=== PATIENT | male | born 1965 | race Caucasian/White ===

== ENCOUNTER 2017-09-29 07:00 | Emergency (ER) | payer SELFPAY ==
[~2017-09-29] VITALS: Ht 182.9 cm; Wt 75.9 kg
--- NOTE | 2017-09-29 07:05 | EMERGENCY ROOM VISIT NOTE ---
History Report prepared by Scribe: Glenys Tena Under the Supervision of: Dr. Kt Rudd D.O. First contact with patient: 06:59 Stated Complaint: HYPOTENSION/LETHARGIC History of Present Illness The patient is a 52 year old male who presents to the Emergency Room with complaints of an episode of lethargy and weakness that began earlier this morning. 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 EMS states the patient began to feel diaphoretic and dizzy while he was at work, so he called EMS. He was bradycardic, hypoxic at 86% and hypotensive in the 60's on EMS arrival. The patient notes he feels much better here in the ED. He denies any headache. He is a non-smoker. He reports he experienced similar symptoms "a few months ago", but no clear etiology was ever found. He denies any chest pain or abdominal pain. He denies any recent drug or alcohol use. He admits he did not sleep well last night. He states he takes no daily medications. Source of History: patient, EMS Onset: BOOK [employer] Position: other (global) Timing: resolved Associated Symptoms: + diaphoresis, No chest pain, No abdominal pain Review of Systems See HPI for pertinent positives & negatives. A total of 10 systems reviewed and were otherwise negative. Past Medical & Surgical Medical Problems: (1) No significant past medical history Social History Alcohol Use: occasionally Drug Use: none Marital Status: in relationship Housing Status: lives with significant other Occupation Status: employed Current/Historical Medications Miscellaneous Medications None (Patient States No Home Meds) Allergies Coded Allergies: No Known Allergies (Unverified , 09/29/17) Physical Exam Vital Signs Date Time Temp Pulse Resp B/P (MAP) Pulse Ox O2 Delivery O2 Flow Rate FiO2 09/29/17 10:22 87 17 116/76 98 09/29/17 10:16 116/76 09/29/17 10:11 87 13 98 09/29/17 10:01 115/76 09/29/17 09:56 88 18 96 09/29/17 09:46 125/77 09/29/17 09:41 83 19 97 09/29/17 09:31 114/73 09/29/17 09:26 84 20 98 09/29/17 09:16 132/80 09/29/17 09:11 92 21 100 09/29/17 09:01 123/74 09/29/17 08:56 82 17 98 09/29/17 08:51 36.5 82 14 99 Room Air 09/29/17 08:46 119/77 09/29/17 08:36 75 14 98 Room Air 09/29/17 08:31 118/75 Room Air 09/29/17 08:21 73 17 97 Room Air 09/29/17 08:16 120/76 Room Air 09/29/17 08:15 91 10 100 Room Air 09/29/17 08:01 118/70 Room Air 09/29/17 08:00 77 14 98 Room Air 09/29/17 07:46 115/73 09/29/17 07:45 83 16 99 09/29/17 07:31 114/73 09/29/17 07:30 72 12 119/71 99 09/29/17 07:20 100 Room Air 09/29/17 07:15 72 16 99 09/29/17 07:10 34.6 60 21 106/64 99 Room Air 09/29/17 07:09 57 09/29/17 07:04 106/64 Physical Exam GENERAL: Patient is awake, alert, answers questions slowly and follows commands. EYES: The conjunctivae are clear. The pupils are round and reactive. EARS, NOSE, MOUTH AND THROAT: The nose is without any evidence of any deformity. Mucous membranes are moist tongue is midline NECK: The neck is nontender and supple. RESPIRATORY: Lung sounds were diminished throughout, no rales, rhonchi or wheezing noted CARDIOVASCULAR: Heart sounds were bradycardic and muffled. Regular rhythm noted , there are no definite murmurs, rubs or gallops normal S1 normal S2 GASTROINTESTINAL: The abdomen is soft. Bowel sounds are present in all quadrants. Abdomen is nontender MUSCULOSKELETAL/EXTREMITIES: There is no evidence of gross deformity full range of motion is noted in the hips and shoulders SKIN: Skin is warm and diaphoretic, no pedal edema noted. There is no obvious evidence of any rash. There are no petechiae, pallor or cyanosis noted. NEUROLOGIC: Patient is awake, oriented to person, place and time, seems to take longer than expected to answer questions, strength was symmetric Medical Decision & Procedures ER Provider Diagnostic Interpretation: Radiology results as stated below per my review and radiologist interpretation: CHEST ONE VIEW PORTABLE HISTORY: 52 years-old Male Sepsis acute sepsis with hypotension and lethargy COMPARISON: Chest radiograph 03/09/2006 TECHNIQUE: Portable AP view of the chest FINDINGS: Cardiomediastinal and hilar silhouettes are within normal limits. There is no pneumothorax, pleural effusion, focal airspace consolidation or overt pulmonary edema. Degenerative changes are seen within the shoulders and spine. IMPRESSION: No acute process. The above report was generated using voice recognition software. It may contain grammatical, syntax or spelling errors. Electronically signed by: Ra Long M.D. 09/29/2017 7:28 AM Laboratory Results 09/29/17 06:45 Red Blood Count 4.42, Mean Corpuscular Volume 87.1, Mean Corpuscular Hemoglobin 31.2, Mean Corpuscular Hemoglobin Concent 35.8, Mean Platelet Volume 11.7, Neutrophils (%) (Auto) 40.6, Lymphocytes (%) (Auto) 52.3, Monocytes (%) (Auto) 5.9, Eosinophils (%) (Auto) 0.8, Basophils (%) (Auto) 0.2, Neutrophils # (Auto) 4.25, Lymphocytes # (Auto) 5.47, Monocytes # (Auto) 0.62, Eosinophils # (Auto) 0.08, Basophils # (Auto) 0.02 09/29/17 06:45 Test 09/29/17 06:45 09/29/17 07:08 09/29/17 07:25 09/29/17 07:34 White Blood Count 10.46 K/uL (4.8-10.8) Red Blood Count 4.42 M/uL (4.7-6.1) Hemoglobin 13.8 g/dL (14.0-18.0) Hematocrit 38.5 % (42-52) Mean Corpuscular Volume 87.1 fL (80-100) Mean Corpuscular Hemoglobin 31.2 pg (25-34) Mean Corpuscular Hemoglobin Concent 35.8 g/dl (32-36) Platelet Count 267 K/uL (130-400) Mean Platelet Volume 11.7 fL (7.4-10.4) Neutrophils (%) (Auto) 40.6 % Lymphocytes (%) (Auto) 52.3 % Monocytes (%) (Auto) 5.9 % Eosinophils (%) (Auto) 0.8 % Basophils (%) (Auto) 0.2 % Neutrophils # (Auto) 4.25 K/uL (1.4-6.5) Lymphocytes # (Auto) 5.47 K/uL (1.2-3.4) Monocytes # (Auto) 0.62 K/uL (0.11-0.59) Eosinophils # (Auto) 0.08 K/uL (0-0.5) Basophils # (Auto) 0.02 K/uL (0-0.2) RDW Standard Deviation 39.8 fL (36.4-46.3) RDW Coefficient of Variation 12.4 % (11.5-14.5) Immature Granulocyte % (Auto) 0.2 % Immature Granulocyte # (Auto) 0.02 K/uL (0.00-0.02) Large Platelets 1+ Echinocytes 2+ Erythrocyte Sedimentation Rate 2 mm/hr (0-14) Prothrombin Time 11.4 SECONDS (9.0-12.0) Prothromb Time International Ratio 1.1 (0.9-1.1) Activated Partial Thromboplast Time 21.6 SECONDS (21.0-31.0) Partial Thromboplastin Ratio 0.8 Est Creatinine Clear Calc Drug Dose 85.7 ml/min Estimated GFR () 91.4 Estimated GFR (Non- 78.8 BUN/Creatinine Ratio 12.5 (10-20) Calcium Level 8.8 mg/dl (8.5-10.1) Phosphorus Level 2.9 mg/dl (2.5-4.9) Magnesium Level 1.9 mg/dl (1.8-2.4) Total Bilirubin 0.7 mg/dl (0.2-1) Aspartate Amino Transf (AST/SGOT) 12 U/L (15-37) Alanine Aminotransferase (ALT/SGPT) 18 U/L (12-78) Alkaline Phosphatase 66 U/L (45-117) Total Creatine Kinase 70 U/L (39-308) Creatine Kinase MB 1.9 ng/ml (0.5-3.6) Creatine Kinase MB Ratio 2.7 (0-3.0) Troponin I < 0.015 ng/ml (0-0.045) C-Reactive Protein < 0.29 mg/dl (0-0.29) Total Protein 7.4 gm/dl (6.4-8.2) Albumin 4.1 gm/dl (3.4-5.0) Globulin 3.3 gm/dl (2.5-4.0) Albumin/Globulin Ratio 1.3 (0.9-2) Lipase 171 U/L (73-393) Thyroid Stimulating Hormone (TSH) 7.790 uIu/ml (0.300-4.500) Free Thyroxine 1.35 ng/dl (0.80-1.60) Random Cortisol 19.05 mcg/dl Lyme Disease IgG Antibody NEG (NEG) Lyme Disease IgM Antibody NEG (NEG) Bedside D-Dimer 203 ng/mlFEU (0-450) Bedside Lactic Acid Venous 2.50 mmol/L (0.90-1.70) Bedside Hemoglobin 11.9 g/dl (14.0-18.0) Bedside Hematocrit 35 % (42-52) Bedside Sodium 141 mEq/L (135-144) Bedside Potassium 2.8 mEq/L (3.3-5.0) Bedside Chloride 105 mEq/L (101-112) Bedside Total CO2 21 mEq/l (24-31) Anion Gap 18.0 mmol/L (16-25) Bedside Blood Urea Nitrogen 13 mg/dl (7-18) Bedside Creatinine 0.9 mg/dl (0.6-1.3) Bedside Glucose (other) 188 mg/dl (70-99) Bedside Ionized Calcium (Raul) 1.05 mmol/l (1.12-1.32) Test 09/29/17 07:46 09/29/17 09:05 Venous Blood pH 7.37 (7.36-7.41) Venous Blood Partial Pressure CO2 41 mmHg (38.0-50.0) Venous Blood Partial Pressure O2 45 mmHg Venous Blood HCO3 24 mmol/L Venous Blood Oxygen Saturation 78.0 % Venous Blood Base Excess -1.5 mEq/L Carboxyhemoglobin 0.0 % THgb Ethyl Alcohol mg/dL < 3.0 mg/dl (0-3) Urine Color YELLOW Urine Appearance CLEAR (CLEAR) Urine pH 7.5 (4.5-7.5) Urine Specific [place] 1.010 (1.000-1.030) Urine Protein NEG (NEG) Urine Glucose (UA) NEG (NEG) Urine Ketones NEG (NEG) Urine Occult Blood NEG (NEG) Urine Nitrite NEG (NEG) Urine Bilirubin NEG (NEG) Urine Urobilinogen NEG (NEG) Urine Leukocyte Esterase NEG (NEG) Urine WBC (Auto) 0 /hpf (0-5) Urine RBC (Auto) 0-4 /hpf (0-4) Urine Hyaline Casts (Auto) 1-5 /lpf (0-5) Urine Epithelial Cells (Auto) 0-5 /lpf (0-5) Urine Bacteria (Auto) NEG (NEG) Urine Opiates Screen NEG (NEG) Urine Methadone, Qualitative NEG (NEG) Urine Barbiturates NEG (NEG) Urine Phencyclidine (PCP) Level NEG (NEG) Ur Amphetamine/Methamphetamine NEG (NEG) MDMA (Ecstasy) Screen NEG (NEG) Urine Benzodiazepines Screen NEG (NEG) Urine Cocaine Metabolite NEG (NEG) Urine Marijuana (THC) NEG (NEG) Laboratory results per my review. Medications Administered Medications (Trade) Dose Ordered Sig/Albert Route Start Time Stop Time Status Last Admin Dose Admin Sodium Chloride 1,000 ml @ 999 mls/hr Q1H1M ONCE IV 09/29/17 07:07 09/29/17 08:07 DC 09/29/17 07:34 999 MLS/HR Potassium Chloride 100 ml @ 100 mls/hr NOW STAT IV 09/29/17 07:44 09/29/17 08:43 DC 09/29/17 07:52 100 MLS/HR Thiamine HCl (Vitamin B-1 Inj) 100 mg NOW STAT IV 09/29/17 08:36 09/29/17 08:37 DC 09/29/17 09:00 100 MG ECG Per My Interpretation Indication: diaphoresis Rate (beats per minute): 54 Rhythm: sinus bradycardia Findings: no ectopy, other (No PVC's) Change: no significant change (No significant change from EKG on 03/09/2006) ED Course 0659: The patient was evaluated in room B1. A complete history and physical examination were performed. 0707: NSS 1000 ml @ 999 mls/hr IV. 0744: Potassium Chloride 100 ml @ 100 mls/hr IV. 0750: Nursing informed me the patient is declining a CT scan. He states he had a cardiac workup done in June in [place] when he was visiting his Mother. 0836: Thiamine HCl 100 mg IV. 0843: I reevaluated the patient. He is resting comfortably. 0910: I reevaluated the patient. I discussed my recommendation he remain in the hospital for further evaluation and management and he declined, stating he would like to go home. 1020: I reevaluated the patient. He is feeling well and resting comfortably. I discussed his results and discharge instructions and he verbalized complete understanding and agreement. Medical Decision Prior records/ancillary studies reviewed and summarized above. Nursing notes reviewed. The patient's history was concerning for altered mental status. Differential diagnosis: Etiologies such as metabolic, infection, hypoglycemia, electrolyte abnormalities , cardiac sources, intracerebral event, toxicologic, neurologic, as well as others were entertained. The patient is a 52-year-old male who presented to the emergency department for an evaluation. The patient was brought to the emergency department by ambulance for multiple issues. He was hypothermic when he arrived. He also had reported hypotension. The patient was treated with IV fluids in the emergency department. His condition continued to improve while he was in the emergency department. I discussed the patient's laboratory and radiographic studies with him. I did discuss with him the possibility that this could represent some infection but the patient states that he had a very similar episode in the past. The patient did not wish to stay in the hospital. He did not wish to be started on any new medications. He was encouraged to follow-up with his primary care physician for further evaluation as well as possible evaluation for seizure. He was also encouraged to return the emergency department immediately if symptoms change worsen or the need arises. Head Trauma GCS Score: 15 Medication Reconcilliation Current Medication List: was personally reviewed by me Blood Pressure Screening Patient's blood pressure: Normal blood pressure Blood pressure disposition: Did not require urgent referral Impression Primary Impression: Hypothermia Additional Impressions: Hypotension Hypokalemia Altered mental status Scribe Attestation The scribe's documentation has been prepared under my direction and personally reviewed by me in its entirety. I confirm that the note above accurately reflects all work, treatment, procedures, and medical decision making performed by me. Departure Information Dispostion Home / Self-Care Patient Instructions ED Hypothermia Prevention, Hypokalemia [facility] Additional Instructions Call your family doctor to schedule a follow-up appointment. I would recommend further study such as an echocardiogram and a Holter monitor to further evaluate the cause of your symptoms. You may also require referral to a neurologist and further neuro imaging such as an MRI of the brain or an EEG to evaluate the cause your symptoms today. Return to the emergency department immediately if symptoms change worsen or the need arises. Problem Qualifiers Primary Impression: Hypothermia Encounter type: initial encounter Qualified Codes: T68.XXXA - Hypothermia, initial encounter Additional Impressions: Hypotension Hypotension type: unspecified hypotension type Qualified Codes: I95.9 - Hypotension, unspecified Altered mental status Altered mental status type: unspecified Qualified Codes: R41.82 - Altered mental status, unspecified
[2017-09-29] MEDS ORDERED: SODIUM CHLORIDE 0.9% 1000ML 1,000 ML IV ONE (07:07)
[2017-09-29 07:10] VITALS: Ht 182.9 cm; Wt 75.9 kg
[2017-09-29 07:19] LABS: HEMATOCRIT 38.5 % (42-52); HEMOGLOBIN 13.8 g/dL (14.0-18.0); MEAN CELL VOLUME 87.1 fL (80-100); MEAN CORPUSCULAR HEMOGLOBIN 31.2 pg (25-34); MEAN CORPUSCULAR HGB CONC 35.8 g/dl (32-36); MEAN PLATELET VOLUME 11.7 fL (7.4-10.4); PLATELET COUNT 267 K/uL (130-400); RED CELL DISTRIBUTION WIDTH CV 12.4 % (11.5-14.5); RED CELL DISTRIBUTION WIDTH SD 39.8 fL (36.4-46.3); WHITE BLOOD COUNT 10.46 K/uL (4.8-10.8)
[2017-09-29 07:20] VITALS: O2SAT 100
[2017-09-29 07:21] LABS: ISTAT IONIZED CALCIUM 1.08 mmol/l (1.12-1.32); ISTAT POTASSIUM 3.1 mEq/L (3.3-5.0)
[2017-09-29 07:25] LABS: INR 1.1 (0.9-1.1); PTT PATIENT 21.6 SECONDS (21.0-31.0)
--- NOTE | 2017-09-29 07:30 | DIAGNOSTIC IMAGING REPORT ---
CHEST ONE VIEW PORTABLE HISTORY: 52 years-old Male Sepsis acute sepsis with hypotension and lethargy COMPARISON: Chest radiograph 03/09/2006 TECHNIQUE: Portable AP view of the chest FINDINGS: Cardiomediastinal and hilar silhouettes are within normal limits. There is no pneumothorax, pleural effusion, focal airspace consolidation or overt pulmonary edema. Degenerative changes are seen within the shoulders and spine. IMPRESSION: No acute process. The above report was generated using voice recognition software. It may contain grammatical, syntax or spelling errors. Electronically signed by: Ra Long M.D. 09/29/2017 7:28 AM Dictated Date/Time: 09/29/2017 7:27 AM
[2017-09-29 07:35] LABS: BLOOD UREA NITROGEN 13 mg/dl (7-18); CREATININE 1.07 mg/dl (0.60-1.40); GLUCOSE 149 mg/dl (70-99)
[2017-09-29 07:36] LABS: ALBUMIN 4.1 gm/dl (3.4-5.0); ALT/SGPT 18 U/L (12-78); AST/SGOT 12 U/L (15-37); CALCIUM 8.8 mg/dl (8.5-10.1); CARBON DIOXIDE 22 mmol/L (21-32); LIPASE 171 U/L (73-393); POTASSIUM 3.1 mmol/L (3.5-5.1); SODIUM 138 mmol/L (136-145)
[2017-09-29 07:41] LABS: ALKALINE PHOSPHATASE 66 U/L (45-117); CKMB 1.9 ng/ml (0.5-3.6); PHOSPHORUS 2.9 mg/dl (2.5-4.9); TOTAL PROTEIN 7.4 gm/dl (6.4-8.2)
[2017-09-29] MEDS ORDERED: POTASSIUM CHLR 10 MEQ / WTR 100 ML IV STA (07:44)
[2017-09-29 07:49] LABS: ISTAT CREATININE 0.9 mg/dl (0.6-1.3); ISTAT IONIZED CALCIUM 1.05 mmol/l (1.12-1.32); ISTAT POTASSIUM 2.8 mEq/L (3.3-5.0)
[2017-09-29 08:00] LABS: BASO % 0.2 %; BASO ABS # 0.02 K/uL (0-0.2); EOS % 0.8 %; EOS ABS # 0.08 K/uL (0-0.5); IG# 0.02 K/uL (0.00-0.02); LYMPH % 52.3 %; LYMPH ABS # 5.47 K/uL (1.2-3.4); MONO % 5.9 %; MONO ABS # 0.62 K/uL (0.11-0.59); NEUT % 40.6 %; NEUT ABS # 4.25 K/uL (1.4-6.5)
[2017-09-29] MEDS ORDERED: THIAMINE HCL 100 MG/ML 2 ML VIAL IV STA (08:36)
[2017-09-29 08:51] VITALS: TEMP 36.5
[2017-09-29 10:22] VITALS: BP 116/76; PULSE 87; O2SAT 98
== END 2017-09-29 10:23 | disposition home or self-care (01) ==
LOC: EDBD 07:00 → C.EDB 07:01
DX: T68.XXXA Hypothermia, initial encounter (principal); I95.9 Hypotension, unspecified; E87.6 Hypokalemia; R41.82 Altered mental status, unspecified

== ENCOUNTER 2019-04-03 05:31 | Inpatient (IN) ==
--- NOTE | 2019-04-03 05:43 | Emergency Department Note ---
History of Present Illness General Chief complaint: Hip Pain Stated complaint: HIP PAIN/FALL Time Seen by Provider: 04/03/19 05:32 Source: patient Mode of arrival: EMS Limitations: no limitations History of Present Illness This patient is a 53-year-old male who presents to the emergency department via EMS for evaluation of right hip pain after a fall. 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 The fall occurred approximately 1 hour prior to arrival. He states that he tried to drag himself with the other leg. He has been unable to walk since the injury occurred. He denies significant pain at rest, but notes pain with any movement of the hip and rates his discomfort an 8/10. He denies numbness or weakness. He denies striking his head or s ustaining any other injuries with the fall. Home Medications Home Medications Medication Instructions Recorded Confirmed Type No Known Home Medications 04/03/19 04/03/19 History Allergies Allergy/AdvReac Type Severity Reaction Status Date / Time No Known Allergies Allergy Mild Unverified 04/03/19 05:49 Past Med/Surg History Medical History No significant past medical history Social History current occupational status: employed Feels Safe at Home: Yes Smoking Status: Never smoker Review of Systems A total of 10 systems reviewed and were otherwise negative Physical Exam Vital Signs Vital Signs - 24 hr 04/03/19 05:42 04/03/19 06:48 Temperature 36.6 C Temperature Source Oral Sepsis Recent Fever Within 48 Hours No Sepsis New/Unexplained Change in Mental Status No Sepsis Action Taken by Nursing No Action Required Pulse Rate 80 Pulse Rate [Right Finger] 77 Pulse Rhythm Regular Pulse Rhythm [Right Finger] Regular Pulse Strength Normal Pulse Strength [Right Finger] Normal Respiratory Rate 16 16 Respiratory Effort / Characteristics Non-Labored Non-Labored Respiratory Depth Normal Normal Respiratory Pattern Regular Regular Blood Pressure 119/74 Blood Pressure [Right Arm] 111/65 Blood Pressure Mean 89 Blood Pressure Mean [Right Arm] 80 Blood Pressure Position Lying Blood Pressure Position [Right Arm] Lying Pulse Oximetry 100 95 Oxygen Delivery Method Room Air Room Air VITALS: Vitals are noted on the nurse's note and reviewed by myself. Vital signs stable. GENERAL: This is a 53-year-old male, in no acute distress, nondiaphoretic, well- developed well-nourished. SKIN: The skin was without rashes, erythema, edema, or bruising. HEAD: Normocephalic atraumatic. EYES: Pupils equal round and reactive to light and accommodation. MOUTH: Mucous membranes dry. NECK: Supple without nuchal rigidity. Cervical spine is nontender. HEART: Regular rate and rhythm without murmurs gallops or rubs. LUNGS: Clear to auscultation bilaterally without wheezes, rales or rhonchi. ABDOMEN: Positive bowel sounds x 4. Soft, nontender to palpation. No guarding or rebound tenderness. MUSCULOSKELETAL: No obvious deformities. Tenderness to palpation of the right lateral hip with decreased range of motion of the hip. No tenderness of the knee or distal right leg. Dorsalis pedis pulse 2+. NEURO: Patient was alert and oriented to person place and time. Sensation intact distally over the right lower extremity. Course Reevaluation(s) Reevaluation #1: Patient was reevaluated and findings discussed with the patient. He is agreeable to admission. Consultations Consultation #1: Dr. Kumar - orthopedics Consultation #2: Dr. Tobar - [facility] hospitalist Administered Medications Sodium Chloride (Nss 1000ml) 1,000 mls @ 999 mls/hr IV .Q1H1M ONE Stop: 04/03/19 07:20 Last Admin: 04/03/19 06:50 Dose: 999 mls/hr Documented by: [id number] Discontinued Medications Morphine Sulfate (Morphine Sulfate) 6 mg IV NOW STA Stop: 04/03/19 05:50 Last Admin: 04/03/19 05:58 Dose: 3 mg Documented by: [id number] Ondansetron HCl (Zofran) 4 mg IV NOW STA Stop: 04/03/19 05:50 Last Admin: 04/03/19 05:57 Dose: 4 mg Documented by: [id number] Medical Decision Making Differential Diagnosis Differential diagnosis includes femur fracture, pelvic fracture, hip dislocation, contusion, among others. Home Medications Current Medication List: was personally reviewed by me Laboratory Data Attestation: I reviewed the patient's lab results. Result diagrams: 04/03/19 06:03 04/03/19 06:03 Lab Results 04/03/19 04/03/19 04/03/19 Range/Units 06:03 06:03 06:03 WBC 20.73 H (4.8-10.8) K/uL RBC 4.34 L (4.7-6.1) M/uL Hgb 13.4 L (14.0-18.0) g/dL Hct 38.1 L (42-52) % MCV 87.8 (80-100) fL MCH 30.9 (25-34) pg MCHC 35.2 (32-36) g/dL RDW Std Deviation 39.6 (36.4-46.3) fL RDW Coeff of Ita 12.3 (11.5-14.5) % Plt Count 229 (130-400) K/uL MPV 11.7 H (7.4-10.4) fL Immature Gran % (Auto) 0.5 % Neut % (Auto) 83.5 % Lymph % (Auto) 6.4 % [place] % (Auto) 9.3 % Eos % (Auto) 0.2 % Baso % (Auto) 0.1 % Immature Gran # (Auto) 0.11 H (0.00-0.02) K/uL Neut # (Auto) 17.31 H (1.4-6.5) K/uL Lymph # (Auto) 1.32 (1.2-3.4) K/uL [place] # (Auto) 1.92 H (0.11-0.59) K/uL Eos # (Auto) 0.05 (0-0.5) K/uL Baso # (Auto) 0.02 (0-0.2) K/uL PT 12.1 H (9.0-12.0) Seconds INR 1.2 H (0.9-1.1) APTT 22.7 (21.0-31.0) Seconds PTT Ratio 0.8 Sodium 137 (136-145) mmol/L Potassium 3.0 L (3.5-5.1) mmol/L Chloride 101 (98-107) mmol/L Carbon Dioxide 26 (21-32) mmol/L Anion Gap 10.0 (3-11) BUN 16 (7-18) mg/dl Creatinine 1.05 (0.6-1.4) mg/dl Est Cr Clr Drug Dosing 78.3 ml/min Est GFR ( Amer) 92.8 Est GFR (Non-Af Amer) 80.1 BUN/Creatinine Ratio 15.6 (10-20) Glucose 181 H (70-99) mg/dl Calcium 9.0 (8.5-10.1) mg/dl Total Bilirubin 0.8 (0.2-1) mg/dl AST 11 L (15-37) U/L ALT 19 (12-78) U/L Alkaline Phosphatase 73 (45-117) U/L Total Protein 7.3 (6.4-8.2) gm/dl Albumin 3.9 (3.4-5.0) gm/dl Globulin 3.4 (2.5-4.0) gm/dl Albumin/Globulin Ratio 1.1 (0.9-2) Imaging Data Attestation: I personally reviewed and interpreted this imaging study as follows: Radiologist's Impression: XR femur RT 2V routine DISCUSSION: There is an acute intertrochanteric right hip fracture. No additional femoral fractures are visualized. IMPRESSION: Acute intertrochanteric right hip fracture. XR pelvis 1-2V routine DISCUSSION: There is an acute intertrochanteric right hip fracture. There is no dislocation. IMPRESSION: Acute intertrochanteric right hip fracture. XR chest 1V portable FINDINGS: The patient appears hyperinflated. The heart is normal in size. There is no failure. There is no focal pulmonary consolidation. No pleural effusions are visualized. There is an old right clavicular fracture.[ IMPRESSION: No active disease in the chest. Blood Pressure Blood Pressure Findings: Normal blood pressure Blood Pressure Disposition: did not require urgent referral MDM Narrative This patient is a 53-year-old male who presents to the emergency department via EMS for evaluation of a fall onto his right hip. X-ray reveals right intertroch anteric hip fracture. Patient did receive a dose of IV morphine for pain. Orthopedics was consulted and recommended medical admission. Patient does have a leukocytosis of 20,000 of unclear significance. Patient has had no significant infectious symptoms recently. The fall was mechanical in nature. It is possible that the leukocytosis could be secondary to a stress reaction. Patient was given a liter bolus as he did appear clinically dry with dry mucous membranes. Patient was agreeable to admission. He will be [facility] by the [facility] for further evaluation and care. Impression & Plan Closed intertrochanteric fracture of right femur Discharge Plan Visit Data Chief Complaint: Hip Pain Stated Complaint: HIP PAIN/FALL Other Complaint: Fall ED Provider: [facility] ED Midlevel Provider: Shauna Dale Discharge Problem: Closed intertrochanteric fracture of right femur Forms Stand Alone Forms: [employer] [facility] [employer] X-[employer] Prescriptions Prescriptions: No Action No Known Home Medications RF: 0 Referrals Referrals: PCP,NO [Primary Care Provider] -
[2019-04-03] MEDS ORDERED: ONDANSETRON INJ 2 MG/ML 2 ML VIAL IV STA (05:49)
[2019-04-03] MEDS ORDERED: MoRPHine SULFATE 10 MG/ML CARP/VIAL IV STA (05:49)
[2019-04-03 06:15] LABS: Basophils # (auto) 0.02 K/uL (0-0.2); Basophils % (auto) 0.1 %; Eosinophils # (auto) 0.05 K/uL (0-0.5); Eosinophils % (auto) 0.2 %; Hematocrit (blood only) 38.1 % (42-52); Hemoglobin 13.4 g/dL (14.0-18.0); Immature Granulocytes # (auto) 0.11 K/uL (0.00-0.02); Immature Granulocytes % (auto) 0.5 %; Lymphocytes # (auto) 1.32 K/uL (1.2-3.4); Lymphocytes % (auto) 6.4 %; Mean Corpuscular Hemoglobin 30.9 pg (25-34); Mean Corpuscular Hgb Conc 35.2 g/dL (32-36); Mean Corpuscular Volume 87.8 fL (80-100); Mean Platelet Volume 11.7 fL (7.4-10.4); Monocytes # (auto) 1.92 K/uL (0.11-0.59); Monocytes % (auto) 9.3 %; Neutrophils # (auto) 17.31 K/uL (1.4-6.5); Neutrophils % (auto) 83.5 %; Platelet Count 229 K/uL (130-400); RDW Coefficient of Variation 12.3 % (11.5-14.5); RDW Standard Deviation 39.6 fL (36.4-46.3); Red Blood Count 4.34 M/uL (4.7-6.1); White Blood Count 20.73 K/uL (4.8-10.8)
[2019-04-03] MEDS ORDERED: SODIUM CHLORIDE 0.9% 1000ML 1,000 ML IV ONE (06:20)
[2019-04-03 06:26] LABS: INR 1.2 (0.9-1.1); Partial Thromboplastin Ratio 0.8; Partial Thromboplastin Time 22.7 Seconds (21.0-31.0); Prothrombin Time 12.1 Seconds (9.0-12.0)
[2019-04-03 06:27] LABS: Albumin Level 3.9 gm/dl (3.4-5.0); BUN Creatinine Ratio 15.6 (10-20); Creatinine Clr Calc Pharmacy 78.3 ml/min; Est GFR (African American) 92.8; Est GFR (Non-African American) 80.1
[2019-04-03 06:30] LABS: Albumin Globulin Ratio 1.1 (0.9-2); Bilirubin,Total 0.8 mg/dl (0.2-1); Globulin 3.4 gm/dl (2.5-4.0); Total Protein 7.3 gm/dl (6.4-8.2)
--- NOTE | 2019-04-03 06:37 | XRay Report ---
XR pelvis 1-2V routine CLINICAL HISTORY: Right hip pain status post trauma COMPARISON: None. DISCUSSION: There is an acute intertrochanteric right hip fracture. There is no dislocation. IMPRESSION: Acute intertrochanteric right hip fracture. Electronically signed by: Kyree Stevens M.D. 04/03/2019 6:36 AM
--- NOTE | 2019-04-03 06:37 | XRay Report ---
XR chest 1V portable CLINICAL HISTORY: Hip fracture. Preoperative chest. COMPARISON STUDY: 09/29/2017 FINDINGS: The patient appears hyperinflated. The heart is normal in size. There is no failure. There is no focal pulmonary consolidation. No pleural effusions are visualized. There is an old right clavi cular fracture.[ IMPRESSION: No active disease in the chest. Electronically signed by: Kyree Stevens M.D. 04/03/2019 6:35 AM
--- NOTE | 2019-04-03 06:38 | XRay Report ---
XR femur RT 2V routine CLINICAL HISTORY: Right femoral pain status post trauma COMPARISON: None. DISCUSSION: There is an acute intertrochanteric right hip fracture. No additional femoral fractures a re visualized. IMPRESSION: Acute intertrochanteric right hip fracture. Electronically signed by: Kyree Stevens M.D. 04/03/2019 6:37 AM
[2019-04-03] MEDS ORDERED: MoRPHine SULFATE 2 MG/ML CARP IV PRN (07:01)
[2019-04-03 07:19] LABS: Appearance Urine Slightly Cloudy (Clear); Bilirubin Urine Negative (Negative); Blood Urine Negative (Negative); Color Urine Yellow; Glucose Urine UA Negative (Negative); Ketones Urine 2+ (Negative); Leukocyte Esterase Urine Negative (Negative); Nitrite Urine Negative (Negative); Protein Urine Negative (Negative); Urobilinogen Urine Negative (Negative)
[2019-04-03] MEDS ORDERED: POTASSIUM CHLORIDE 20 MEQ TABCR PO STA (07:33)
--- NOTE | 2019-04-03 07:34 | History & Physical Report ---
Date of Service April 03, 2019 Assessment & Plan (1) Hypokalemia: Admit to [facility] Consult orthopedics Dr. Kumar N.p.o. for now until its clear if surgery will take place today or tomorrow Started IV fluid with potassium since patient has hypokalemia of 3 Replenish potassium in the ER 40 mEq x 1 Monitor potassium, patient has chronically low potassium. Not clear origin. Plan to do CT abdomen and pelvis for possible adrenal gland adenoma. And CT of the head. Monitor leukocytosis. Original leukocytosis not completely clear could be reactive. Will need to optimize the patient before the surgery DVT prophylaxis teds and SCDs We will check for flu Full code Present on Admission?: Yes (2) Closed intertrochanteric fracture of right femur: As above Present on Admission?: Yes (3) Leukocytosis: As above Present on Admission?: Yes History of Present Illness Chief Complaint: Right hip fracture, leukocytosis, hypokalemia Primary Care Provider: NO PCP Patient is a 53 years old male with out significant past medical history who presents this morning to the emergency room with a complaint that he fell from his skateboard and injured his right hip and now complains of severe pain and cannot move his right hip anymore. 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 Patient denies any alcohol consumption smoking or drug abuse. Patient reports having a cold in the past week associated with cough. He reports no sick contact. Patient denies fever, chills, chest pain, shortness of breath, abdominal pain, frequency, urgency. Labs are reviewed which shows WBC of 20.73, hemoglobin 13.4, hematocrit 38.1, neutrophils of 17.31, and elevated monocytes of 1.92. Platelets are 229. PT 12.1, INR 1.2, APTT 22.7. Sodium 137, potassium 3, chloride 101, BUN 16, creatinine 1.05, GFR 80.1, lactate pending, calcium 9, AST 11, ALT 19, BNP 41, albumin 3.9 normal TSH pending. Urine negative blood, negative nitrates, negative bacteria, negative leukocyte esterase. Chest x-rays no active disease. X-rays of the right femur: Acute intratrochanteric right hip fracture, closed without dislocation. Decision was made to admit patient for right intratrochanteric fracture and leukocytosis and hypokalemia to MedSurg. Allergies Allergy/AdvReac Type Severity Reaction Status Date / Time No Known Allergies Allergy Mild Unverified 04/03/19 05:49 Home Medications Home Medications Medication Instructions Recorded Confirmed Type No Known Home Medications 04/03/19 04/03/19 History Past Med/Surg History Medical History No significant past medical history Social History current occupational status: employed Feels Safe at Home: Yes Smoking Status: Never smoker Review of Systems Review of Systems: All systems reviewed & are unremarkable except as noted in HPI & below Physical Exam Constitutional: WD/WN, vitals as above well developed Eyes: PERRL, conjunctivae normal, anicteric sclerae ENMT: external ear and nose normal, oropharynx normal Neck: trachea midline, no thyromegaly Respiratory: normal respiratory effort, lungs clear to auscultation Cardiovascular: RRR, no murmur, no edema Gastrointestinal (Abdomen): normal bowel sounds, soft, nontender, no hepatosplenomegaly Musculoskeletal: no cyanosis or clubbing, extremities motor strength 5/5 Unable to walk on the and step on the right foot. Nonweightbearing. No bruising. Skin: no rashes, warm and dry Neurologic: patellar DTR's 2+ bilat, sensation intact Psychiatric: A+Ox3, euthymic affect Lymphatic: no cervical or axillary lymphadenopathy Results & Data Vital Signs (Past 12 Hours) Vital Signs Temp Pulse Pulse Resp BP BP Pulse Ox 04/03/19 07:27 84 18 127/71 100 04/03/19 06:48 77 16 111/65 95 04/03/19 05:42 36.6 C 80 16 119/74 100 Code Status & VTE Plan Code Status Full code VTE Prophylaxis Plan VTE Prophylaxis will be ordered: Yes PG Care Time/CCT Total # of Minutes Spent Total Time Spent with Patient: Total time spent is greater than 50% in coordination of care (as documented) at patient's floor/unit and/or counseling patient: (1) Closed intertrochanteric fracture of right femur Encounter type: initial encounter Fracture alignment: displaced Qualified Code(s): S72.141A - Displaced intertrochanteric fracture of right femur, initial encounter for closed fracture
[2019-04-03 09:13] LABS: Influenza A virus by PCR Neg for Influ A (Neg); Influenza B virus by PCR Neg for Influ B (Neg)
[2019-04-03] MEDS ORDERED: NSS + 20MEQ KCL 20 MEQ/1,000 ML BAG IV SCH (09:19)
[2019-04-03] MEDS ORDERED: ZOLPIDEM TARTRATE 5 MG TAB PO PRN (09:19)
[2019-04-03] MEDS ORDERED: POLYETHYLENE (MIRALAX) 17 GM PACK PO PRN (09:19)
[2019-04-03] MEDS ORDERED: ALUMINUM/MAGNESIUM SUSP 30 ML UDC PO PRN (09:19)
[2019-04-03] MEDS ORDERED: ONDANSETRON INJ 2 MG/ML 2 ML VIAL IV PRN (09:19)
[2019-04-03] MEDS ORDERED: MAGNESIUM HYDROXIDE SUSP 30 ML UDC PO PRN (09:19)
[2019-04-03] MEDS: MoRPHine SULFATE 2 MG/ML CARP IV PRN ×3 (10:53→23:48)
[2019-04-03] MEDS ORDERED: PIPERACILL/TAZOBAC CONSULT ACTIVE PRN (12:53)
[2019-04-03] MEDS ORDERED: PIPERACILLIN/TAZOBACTAM 3.375 GM in DEXTROSE 5% 100 ML IV ONE (14:15)
--- NOTE | 2019-04-03 14:20 | Orthopedic Consultation ---
Date of Consultation April 03, 2019 Assessment & Plan (1) Closed intertrochanteric fracture of right femur: Patient will require surgical fixation of his right intertrochanteric hip fracture with cephalo-medullary nail. I discussed the risks, benefits, alternatives and complications of the procedure with the patient detail. These include however not limited to infections, blood clots, acute blood loss, injury to surrounding nerves, bone, vessels, soft tissue, arthrofibrosis, malunion, nonunion, chronic pain, hip dislocation, leg length discrepancy, failure of the implant, need for additional surgery, loss of limb and loss of life. Alternatives included no surgery which could result in worsening symptoms. Patient wished to proceed with surgical intervention. Nonweightbearing right lower extremity Plan for OR on 04/04/2019 N.p.o. after midnight Hold anticoagulation Thank you for the consultation History of Present Illness Reason for Consultation: Right hip fracture Attending Physician: Daniel Arroyo MD History of Present Illness The patient is a 53-year-old male who presents to [facility] secondary to a fall from standing height while skateboarding at work he reports. Admits to pain to the right hip. Was seen at [facility] emergency department, x-rays positive for a right intertrochanteric hip fracture. He was admitted for further inpatient evaluation and treatment. He denies any associated injuries. Denies numbness or tingling to his right lower extremity. Denies previous surgeries to his right hip. Denies loss of consciousness or hitting his head. Allergies Allergy/AdvReac Type Severity Reaction Status Date / Time No Known Allergies Allergy Mild Unverified 04/03/19 05:49 Home Medications Home Medications Medication Instructions Recorded Confirmed Type No Known Home Medications 04/03/19 04/03/19 History Patient History Medical History No significant past medical history Social History Preferred Language: [place]ian Communication Ability: Effective Soap Drier Operator Required: No Beliefs That Will Affect Care: None Current Living Situation: Parent current occupational status: employed Feels Safe at Home: Yes Smoking Status: Never smoker Hx Alcohol Use: No Hx Substance Use: No Review of Systems Review of Systems: All systems reviewed & are unremarkable except as noted in HPI & below Constitutional: as per Subjective / HPI Physical Exam Physical Exam: Right lower extremity physical exam NVSI +EHL/FHL/TA/GS SILT grossly, +2 DP pulse, tenderness to palpation overlying right hip, skin intact, right lower extremity is short and externally rotated. Constitutional: WD/WN, vitals as above Results & Data Vital Signs (Past 12 Hours) Vital Signs Temp Pulse Pulse Resp BP BP Pulse Ox 04/03/19 09:00 37.2 C 99 H 18 126/65 94 04/03/19 08:30 80 18 124/70 95 04/03/19 07:27 84 18 127/71 100 04/03/19 06:48 77 16 111/65 95 04/03/19 05:42 36.6 C 80 16 119/74 100 Diagnostic Findings XR femur RT 2V routine CLINICAL HISTORY: Right femoral pain status post trauma COMPARISON: None. DISCUSSION: There is an acute intertrochanteric right hip fracture. No additional femoral fractures are visualized. IMPRESSION: Acute intertrochanteric right hip fracture. [place], [place] [phone] XR pelvis 1-2V routine CLINICAL HISTORY: Right hip pain status post trauma COMPARISON: None. DISCUSSION: There is an acute intertrochanteric right hip fracture. There is no dislocation. IMPRESSION: Acute intertrochanteric right hip fracture. (1) Closed intertrochanteric fracture of right femur Encounter type: initial encounter Fracture alignment: displaced Qualified Code(s): S72.141A - Displaced intertrochanteric fracture of right femur, initial encounter for closed fracture
[2019-04-03 15:32] LABS: Basophils # (auto) 0.02 K/uL (0-0.2); Basophils % (auto) 0.2 %; Eosinophils # (auto) 0.16 K/uL (0-0.5); Eosinophils % (auto) 1.9 %; Hematocrit (blood only) 35.8 % (42-52); Hemoglobin 12.1 g/dL (14.0-18.0); Immature Granulocytes # (auto) 0.01 K/uL (0.00-0.02); Immature Granulocytes % (auto) 0.1 %; Lymphocytes # (auto) 0.88 K/uL (1.2-3.4); Lymphocytes % (auto) 10.6 %; Mean Corpuscular Hemoglobin 30.3 pg (25-34); Mean Corpuscular Hgb Conc 33.8 g/dL (32-36); Mean Corpuscular Volume 89.5 fL (80-100); Mean Platelet Volume 10.8 fL (7.4-10.4); Monocytes # (auto) 1.27 K/uL (0.11-0.59); Monocytes % (auto) 15.2 %; Neutrophils # (auto) 5.99 K/uL (1.4-6.5); Platelet Count 178 K/uL (130-400); RDW Coefficient of Variation 12.6 % (11.5-14.5); RDW Standard Deviation 40.7 fL (36.4-46.3); White Blood Count 8.33 K/uL (4.8-10.8)
[2019-04-03] MEDS: OXYCODONE/ACETAMINOPHEN 5mg/325mg TAB PO PRN (18:56)
[2019-04-03] MEDS: PIPERACILLIN/TAZOBACTAM 3.375 GM in DEXTROSE 5% 100 ML IV SCH (20:05)
[2019-04-04] MEDS: PIPERACILLIN/TAZOBACTAM 3.375 GM in DEXTROSE 5% 100 ML IV SCH ×3 (04:08→20:58)
[2019-04-04] MEDS: OXYCODONE/ACETAMINOPHEN 5mg/325mg TAB PO PRN ×2 (04:08→19:52)
[2019-04-04 06:21] LABS: Basophils # (auto) 0.01 K/uL (0-0.2); Basophils % (auto) 0.2 %; Eosinophils # (auto) 0.32 K/uL (0-0.5); Eosinophils % (auto) 5.2 %; Hematocrit (blood only) 38.7 % (42-52); Hemoglobin 12.9 g/dL (14.0-18.0); Lymphocytes # (auto) 1.92 K/uL (1.2-3.4); Lymphocytes % (auto) 31.1 %; Mean Corpuscular Hgb Conc 33.3 g/dL (32-36); Mean Platelet Volume 11.7 fL (7.4-10.4); Monocytes # (auto) 0.92 K/uL (0.11-0.59); Monocytes % (auto) 14.9 %; Neutrophils % (auto) 48.6 %; Platelet Count 186 K/uL (130-400); RDW Coefficient of Variation 12.8 % (11.5-14.5); RDW Standard Deviation 41.6 fL (36.4-46.3); White Blood Count 6.17 K/uL (4.8-10.8)
[2019-04-04 06:33] LABS: INR 1.2 (0.9-1.1); Partial Thromboplastin Time 26.5 Seconds (21.0-31.0)
[2019-04-04 07:03] LABS: Albumin Level 3.4 gm/dl (3.4-5.0); BUN Creatinine Ratio 9.8 (10-20); Bilirubin,Total 1.2 mg/dl (0.2-1); Calcium 8.4 mg/dl (8.5-10.1); Creatinine Clr Calc Pharmacy 88.4 ml/min; Est GFR (African American) 107.5; Est GFR (Non-African American) 92.7
[2019-04-04 07:23] LABS: Globulin 3.3 gm/dl (2.5-4.0); Total Protein 6.7 gm/dl (6.4-8.2)
[2019-04-04] MEDS ORDERED: MAGNESIUM SULFATE / D5W 1 GM/100 ML BAG IV SCH (08:15)
--- NOTE | 2019-04-04 14:02 | Orthopedic Progress Note ---
Date of Service April 04, 2019 Assessment & Plan (1) Closed intertrochanteric fracture of right femur: Patient has been NPO. Per , patient is optimized for surgery and okay to proceed. Will plan for a right hip ORIF with likely short troch nail. Subjective Patient comfortable. Pain controlled well. Physical Exam Physical Exam: A&Ox3. Laying comfortable in bed. Right LE N/V+ Results & Data Vital Signs (Past 12 Hours) Vital Signs Temp Pulse Resp BP Pulse Ox 04/04/19 07:03 36.5 C 66 18 115/69 95 (1) Closed intertrochanteric fracture of right femur Encounter type: initial encounter Fracture alignment: displaced Qualified Code(s): S72.141A - Displaced intertrochanteric fracture of right femur, initial encounter for closed fracture
--- NOTE | 2019-04-04 15:21 | Anesthesiology Consultation ---
Date of Service April 04, 2019 Assessment & Plan (1) Encounter for pre-operative examination: Chart Review Chart Review: Acceptable Risk for Surgery History Surgery Operation Date: 04/04/19 08:20 Proposed Procedures p Right Troch Nail - Qasim Rubio MD Height/Weight Height: 6 ft Weight: 68.8 kg Allergies Allergy/AdvReac Type Severity Reaction Status Date / Time No Known Allergies Allergy Mild Unverified 04/03/19 05:49 Medications Home Medications Medication Instructions Recorded Confirmed Last Taken No Known Home Medications 04/03/19 04/03/19 Unknown Active Medications Generic Name Dose Route Start Last Admin Trade Name Freq PRN Reason Stop Dose Admin Piperacillin Sod/Tazobactam 115 mls @ 28.75 mls/hr 04/03/19 20:00 04/04/19 11:39 Sod 3.375 gm/ Dextrose IV 04/05/19 14:59 28.8 mls/hr Q8H HENRIK Administration Protocol Morphine Sulfate 1 mg 04/03/19 09:19 04/03/19 23:48 Morphine Sulfate IV 04/17/19 09:18 1 mg Q2H PRN Administration Pain Oxycodone/Acetaminophen 1 tab 04/03/19 09:19 04/04/19 04:08 Percocet 5mg/325mg PO 04/17/19 09:18 1 tab Q4H PRN Administration Pain NPO Date Last Intake of Fluids: 04/03/19 Time Last Intake of Fluids: 23:00 Date Last Intake of Solids: 04/03/19 Time Last Intake of Solids: 23:00 Past Medical History Medical History No significant past medical history Social History Smoking Status: Never smoker Hx Alcohol Use: No Hx Substance Use: No Physical Exam Vital Signs Last Vital Signs Temp 36.9 C 04/04/19 14:46 Pulse 66 04/04/19 07:03 Resp 18 04/04/19 14:46 BP 118/64 04/04/19 14:46 Pulse Ox 98 04/04/19 14:46 Testing Laboratory Results 04/04/19 06:01 04/04/19 06:01 PT 12.0 Seconds (9.0-12.0) 04/04/19 06:01 INR 1.2 (0.9-1.1) H 04/04/19 06:01 APTT 26.5 Seconds (21.0-31.0) 04/04/19 06:01 Urine Color Yellow 04/03/19 07:00 Urine Appearance Slightly Cloudy (Clear) 04/03/19 07:00 Urine pH 7.0 (4.5-7.5) 04/03/19 07:00 Ur Specific [place] 1.020 (1.000-1.030) 04/03/19 07:00 Urine Protein Negative (Negative) 04/03/19 07:00 Urine Glucose (UA) Negative (Negative) 04/03/19 07:00 Urine Ketones 2+ (Negative) H 04/03/19 07:00 Urine Nitrite Negative (Negative) 04/03/19 07:00 Ur Leukocyte Esterase Negative (Negative) 04/03/19 07:00 04/03/19 08:25 Group A Streptococcus Rapid Screen - Final Throat Specimen negative for Group A Beta Strep by rapid method. Culture report to follow. Group A Beta-Hemolytic Strep Cult - Preliminary No beta strep isolated to date. Electrocardiogram Date: 04/03/19 Findings: + NSR @ (72), + RBBB (incomplete) and + T wave inversion (anterior) Chest X-Ray Date: 04/03/19 Findings: + NAD
[2019-04-04] MEDS ORDERED: fentaNYL citrate 100 MCG/2 ML VIAL ONE ×2 (15:25→16:19)
[2019-04-04] MEDS ORDERED: MIDAZOLAM HCL 1 MG/ML 2ML VIAL ONE (15:25)
[2019-04-04] MEDS ORDERED: ONDANSETRON INJ 2 MG/ML 2 ML VIAL ONE (15:25)
[2019-04-04] MEDS ORDERED: LIDOCAINE HCL 2% 2 ML VIAL/AMP(20MG/ML) INFIL ONE (15:25)
[2019-04-04] MEDS ORDERED: PROPOFOL IV EMULSION 10 MG/ML 20 ML VIAL IV ONE (15:25)
[2019-04-04] MEDS ORDERED: KETOROLAC 30 MG/ML VIAL IV PRN (15:39)
[2019-04-04] MEDS ORDERED: ONDANSETRON INJ 2 MG/ML 2 ML VIAL IV PRN ×2 (15:39→18:18)
[2019-04-04] MEDS ORDERED: ATROPINE SULFATE 0.1 MG/ML 10 ML SYR IV PRN (15:39)
[2019-04-04] MEDS ORDERED: HYDROmorphone INJ 1 MG/ML SYRINGE IV PRN (15:39)
[2019-04-04] MEDS ORDERED: BUPIVACAINE 0.5 % 5 MG/1 ML MPF 30ML VIAL ONE (16:13)
[2019-04-04] MEDS ORDERED: CEFAZOLIN 250 MG/ML 1 GM VIAL ONE (16:15)
[2019-04-04] MEDS ORDERED: DEXAMETHASONE SOD INJ 4 MG/ML VIAL ONE (16:17)
[2019-04-04] MEDS ORDERED: CEFAZOLIN 1000MG 1,000 MG/7.5 ML SYR IV ONE (16:28)
--- NOTE | 2019-04-04 17:07 | Post Operative Brief Note ---
Immediate Post Op Note v1 Date of Surgery April 04, 2019 Pre & Post Diagnosis Operation Date: 04/04/19 08:20 Pre-Op Diagnosis: Right Intertrochanteric Femur Fracture Post-Op Diagnosis: Right Intertrochanteric Femur Fracture I identified the patient and participated in the time-out.: Yes Procedure Operation Date: 04/04/19 08:20 Actual Procedures p Intertrochanteric Nailing Right Femur Fracture(Right) - Qasim Rubio MD Surgeon Qasim Rubio MD Primary Mill Roller Milad ALDANA Estimated Blood Loss 20 Findings Consistent with Post-Op Diagnosis Specimens None Anesthesia Type General Regional Complications none Disposition Accompanied Patient To Recovery: No Disposition: Recovery Room Overlapping Procedure I was immediately available: during the entire case.
--- NOTE | 2019-04-04 17:18 | Operative Report ---
Post Operative Report Pre & Post Diagnosis Operation Date: 04/04/19 08:20 Pre-Op Diagnosis: Right Intertrochanteric Femur Fracture Post-Op Diagnosis: Right Intertrochanteric Femur Fracture I identified the patient and participated in the time-out.: Yes Procedure Operation Date: 04/04/19 08:20 Actual Procedures p Intertrochanteric Nailing Right Femur Fracture(Right) - Qasim Rubio MD Surgeon Qasim Rubio MD Literacy Coach Milad ALDANA Estimated Blood Loss 20 Findings Consistent with Post-Op Diagnosis Specimens None Anesthesia Type General Complications none Disposition Accompanied Patient To Recovery: No Disposition: Recovery Room Indications 53-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 Description of Procedure Patient is taken to the operating room and anesthetized under anesthesia. The patient was was placed supine on a fracture table. The right leg was placed into boot traction and the well leg was placed into a well-padded leg holding device in flexion and internal rotation. The reduction was performed by abducting the hip placing longitudinal traction in the external rotated position then internally rotation after traction was placed and then adducting the hip. An anatomic reduction was obtained. The hip was sterilely prepped and draped in usual fashion using ChloraPrep. Fluoroscopy was used throughout the case to assist in the procedure. A lateral incision was made over the hip. The skin was incised sharply. The subcutaneous fat was divided down to the fascia. The fascia was divided longitudinally and the gluteus medius was split with a Cornelius elevator enough to identify the tip of the greater trochanter. A guidewire was placed under fluoroscopic guidance and then the drill was used to open up the canal. We chose a 11 mm / 130 degree titanium Synthes cannulated trochanteric femoral nail. The insertion device was used to insert the bean and seated at the appropriate depth and then the second incision was made for the helical blade. The guide was placed and the guidewire was advanced under fluoroscopic guidance into the femoral neck and head. The guidewire placement centrally aligned on AP view and slightly posterior to the midline on lateral view in acceptable alignment. The reamers were used noting extremely hard bone and then the Synthes 11 mm titanium helical blade was impacted into the neck and head fragment. The bone quality was excellent with extremely hard bone. The proximal locking screw was tightened. The fracture compression device was then used. And then the guide for the distal locking screw was advanced to the bone and the drill used and the measurement taken. A 5 x 42 mm millimeter locking screw was then placed with good fixation. X-rays were obtained to document reduction AP and lateral views. All wounds were irrigated. The deep fascia closed with [id number] #1 Vicryl sutures. The subcutaneous tissues were closed with 2-0 Vicryl. The skin was closed with laura and sterile dressings were applied. The patient tolerated the procedure well. My physician print shop assistant Milad ALDANA was assistant chief train dispatcher throughout the procedure and assisted in patient positioning prepping and draping soft tissue retraction and wound closure and will participate in the postoperative care of the patient. I attest to the content of the Intraoperative Record and any orders documented therein. Any exceptions are noted below.
[2019-04-04] MEDS ORDERED: MEPERIDINE HCL 25 MG/ML CARP IV PRN (17:25)
--- NOTE | 2019-04-04 17:25 | Fluoroscopy Report ---
FL hip RT 2-3V HISTORY: 53 years-old Male ADD ON RIGHT TROCHNAIL acute fracture of the right hip COMPARISON: Right femur radiographs of same day TECHNIQUE: 5 spot fluoroscopic images of the right hip were obtained utilizing 100.6 seconds fluorosc opy time FINDINGS: Status post placement of an intratrochanteric nail with medullary bean fixating the acute intertrochan teric fracture. There is near anatomic alignment. Moderate right hip osteoarthritis. No additional ac ruby fracture or dislocation. Expected postsurgical soft tissue swelling and deep tissue air. IMPRESSION: Fluoroscopic assistance as above. Please see operative report for further details. The above report was generated using voice recognition software. It may contain grammatical, syntax o r spelling errors. Electronically signed by: Ra Long M.D. 04/04/2019 5:23 PM
[2019-04-04] MEDS ORDERED: MEPERIDINE HCL 25 MG/ML CARP ONE (17:28)
--- NOTE | 2019-04-04 17:44 | Hospitalist Progress Note ---
Date of Service April 04, 2019 Assessment & Plan (1) Closed intertrochanteric fracture of right femur: Continue admit to [facility] orthopedic recommendations. Patient is going to have a procedure today intratrochanteric nailing right femur fracture by Dr. Rubio. N.p.o. for the procedure. Continue normal saline while patient n.p.o. Hypokalemia resolved. Potassium 4 Leukocytosis resolved. WBC trended down from 20.75-->6.17. Leukocytosis appears to be reactive. Start Zosyn empirically. Continue monitoring potassium. Patient had prior episodes of low potassium, not completely clear why. CT abdomen and pelvis for possible adrenal gland adenoma ordered. CT of the head-patient refused Will need to optimize the patient before the surgery DVT prophylaxis teds and SCDs Present on Admission?: Yes (2) Leukocytosis: As above Present on Admission?: Yes Subjective Patient seen and examined at the bedside. He is n.p.o. overnight for the surgery. Patient is today optimized and his white blood cell count is down to normal from 20.73-->6.17. Patient denies fever, chills, chest pain, shortness of breath, abdominal pain, frequency, urgency patient complains of right hip pain. Review of Systems Review of Systems: All systems reviewed & are unremarkable except as noted in HPI & below Physical Exam Constitutional: WD/WN, vitals as above well developed Eyes: PERRL, conjunctivae normal, anicteric sclerae ENMT: external ear and nose normal, oropharynx normal Neck: trachea midline, no thyromegaly Respiratory: normal respiratory effort, lungs clear to auscultation Cardiovascular: RRR, no murmur, no edema Gastrointestinal (Abdomen): normal bowel sounds, soft, nontender, no hepatosplenomegaly Musculoskeletal: no cyanosis or clubbing, extremities motor strength 5/5 Skin: no rashes, warm and dry Neurologic: patellar DTR's 2+ bilat, sensation intact Psychiatric: A+Ox3, euthymic affect Lymphatic: no cervical or axillary lymphadenopathy Results & Data Vital Signs (Past 12 Hours) Vital Signs Temp Pulse Pulse Resp BP Pulse Ox 04/04/19 17:15 36.2 C L 89 20 154/92 H 98 04/04/19 14:46 36.9 C 18 118/64 98 04/04/19 07:03 36.5 C 66 18 115/69 95 PG Care Time/CCT Total # of Minutes Spent Total Time Spent with Patient: Total time spent is greater than 50% in coordination of care (as documented) at patient's floor/unit and/or counseling patient: (1) Closed intertrochanteric fracture of right femur Encounter type: initial encounter Fracture alignment: displaced Qualified Code(s): S72.141A - Displaced intertrochanteric fracture of right femur, initial encounter for closed fracture
--- NOTE | 2019-04-04 17:58 | Anesthesiology Progress Note ---
Date of Service April 04, 2019 Anesthesia Post Procedure Vital Signs Vital Signs: Temp Pulse Pulse Resp BP Pulse Ox 04/04/19 17:55 36.7 C 65 16 132/82 100 04/04/19 17:45 64 11 L 138/76 100 04/04/19 17:35 66 12 138/72 100 04/04/19 17:25 75 16 146/80 H 100 04/04/19 17:15 36.2 C L 89 20 154/92 H 98 04/04/19 14:46 36.9 C 18 118/64 98 04/04/19 07:03 36.5 C 66 18 115/69 95 04/03/19 23:30 36.8 C 63 16 124/69 98 Pain Intensity Right Upper Leg: Pain Intensity: 3 Transfer of Care Handoff Completed per policy Notes Mental Status: alert / awake / arousable Patient Amnestic to Procedure: Yes Nausea / Vomiting: adequately controlled Pain: adequately controlled Airway Patency, RR, SpO2: stable & adequate BP & HR: stable & adequate Hydration State: stable & adequate Anesthetic Complications: no major complications apparent
[2019-04-04] MEDS ORDERED: NALOXONE HCL 0.4 MG/1 ML VIAL/CARP IV PRN (18:18)
[2019-04-04] MEDS ORDERED: MAGNESIUM HYDROXIDE SUSP 30 ML UDC PO PRN (18:18)
[2019-04-04] MEDS ORDERED: BISACODYL 10 MG SUPP PR PRN (18:18)
[2019-04-04] MEDS ORDERED: METOCLOPRAMIDE HCL INJ 5 MG/ML 2 ML VIAL IV PRN (18:18)
[2019-04-04] MEDS ORDERED: SODIUM CHLORIDE 0.9% 1000ML 1,000 ML IV SCH (18:18)
[2019-04-04] MEDS: MoRPHine SULFATE 2 MG/ML CARP IV PRN (18:53)
[2019-04-04] MEDS: SENNA 8.6 MG TAB PO SCH (21:01)
[2019-04-04] MEDS: ASPIRIN 81 MG ECTAB PO SCH (21:01)
[2019-04-04] MEDS: DOCUSATE SODIUM 100 MG CAP PO SCH (21:11)
[2019-04-05] MEDS: OXYCODONE/ACETAMINOPHEN 5mg/325mg TAB PO PRN ×3 (01:04→23:26)
[2019-04-05] MEDS: PIPERACILLIN/TAZOBACTAM 3.375 GM in DEXTROSE 5% 100 ML IV SCH ×2 (05:02→11:57)
[2019-04-05 07:44] LABS: Basophils # (auto) 0.01 K/uL (0-0.2); Basophils % (auto) 0.1 %; Eosinophils # (auto) 0.09 K/uL (0-0.5); Eosinophils % (auto) 0.8 %; Hematocrit (blood only) 34.4 % (42-52); Hemoglobin 11.9 g/dL (14.0-18.0); Immature Granulocytes # (auto) 0.02 K/uL (0.00-0.02); Immature Granulocytes % (auto) 0.2 %; Lymphocytes # (auto) 0.92 K/uL (1.2-3.4); Lymphocytes % (auto) 8.2 %; Mean Corpuscular Hemoglobin 30.6 pg (25-34); Mean Corpuscular Hgb Conc 34.6 g/dL (32-36); Mean Corpuscular Volume 88.4 fL (80-100); Mean Platelet Volume 11.6 fL (7.4-10.4); Monocytes % (auto) 12.5 %; Neutrophils # (auto) 8.74 K/uL (1.4-6.5); Neutrophils % (auto) 78.2 %; Platelet Count 211 K/uL (130-400); RDW Coefficient of Variation 12.5 % (11.5-14.5); RDW Standard Deviation 40.2 fL (36.4-46.3); Red Blood Count 3.89 M/uL (4.7-6.1); White Blood Count 11.18 K/uL (4.8-10.8)
[2019-04-05 08:00] LABS: Albumin Level 3.1 gm/dl (3.4-5.0); BUN Creatinine Ratio 13.3 (10-20); Calcium 8.2 mg/dl (8.5-10.1); Creatinine Clr Calc Pharmacy 106.7 ml/min; Est GFR (African American) 119.2; Est GFR (Non-African American) 102.9; Potassium 3.7 mmol/L (3.5-5.1)
[2019-04-05 08:02] LABS: Albumin Globulin Ratio 0.9 (0.9-2); Bilirubin,Total 0.8 mg/dl (0.2-1); Globulin 3.6 gm/dl (2.5-4.0); Total Protein 6.7 gm/dl (6.4-8.2)
[2019-04-05] MEDS: MoRPHine SULFATE 2 MG/ML CARP IV PRN (08:46)
[2019-04-05] MEDS: MULTIVITAMIN TAB PO SCH (08:58)
[2019-04-05] MEDS: ASPIRIN 81 MG ECTAB PO SCH ×2 (08:58→21:01)
[2019-04-05] MEDS: DOCUSATE SODIUM 100 MG CAP PO SCH ×2 (08:58→21:01)
--- NOTE | 2019-04-05 13:55 | Hospitalist Progress Note ---
Date of Service April 05, 2019 Assessment & Plan (1) Closed intertrochanteric fracture of right femur: Continue admit to [facility] orthopedic recommendations. Patient tolerated procedure of intratrochanteric nailing right femur for right intratrochanteric femur fracture very well. Physical therapy ongoing CT of the head, abdomen pelvis, chest done and negative for any kind of adrenal adenoma that would cause patient to have chronic hypokalemia. Patient potassium today is 3.7. Yesterday was 4 after after patient was replenished with potassium. It is not clear reason why patient potassium quickly goes down. Continue monitoring potassium closely. Patient said that he was told in the past that he has adrenal insufficiency. After discharge with refer patient to design lead. Leukocytosis 11.18 appears to be reactive. Discontinued Zosyn that was started empirically since patient does not appear to have any infection ongoing. DVT prophylaxis teds and SCDs Plan to start Lovenox tomorrow for DVT prophylaxis. (2) Leukocytosis: As above Subjective Patient seen and examined at the bedside. Patient tolerated surgery well. Slowly improving. Started physical therapy. Patient agreed to have CT scan of the pelvis chest and head looking for adrenal adenoma or any other kind of abnormality that could result in chronic hypokalemia. Patient denies fever, chills, chest pain, shortness of breath, abdominal pain, frequency, urgency patient complains of right hip pain. Review of Systems Review of Systems: All systems reviewed & are unremarkable except as noted in HPI & below Physical Exam Constitutional: WD/WN, vitals as above well developed Eyes: PERRL, conjunctivae normal, anicteric sclerae ENMT: external ear and nose normal, oropharynx normal Neck: trachea midline, no thyromegaly Respiratory: normal respiratory effort, lungs clear to auscultation Cardiovascular: RRR, no murmur, no edema Gastrointestinal (Abdomen): normal bowel sounds, soft, nontender, no hepatosplenomegaly Musculoskeletal: no cyanosis or clubbing, extremities motor strength 5/5 Extremities: + limited ROM of extremities Right hip pinned. Incision clean dry and intact. Skin: no rashes, warm and dry Neurologic: patellar DTR's 2+ bilat, sensation intact Psychiatric: A+Ox3, euthymic affect Lymphatic: no cervical or axillary lymphadenopathy Results & Data Vital Signs (Past 12 Hours) Vital Signs Temp Pulse Resp BP Pulse Ox 04/05/19 06:59 36.7 C 65 19 118/61 95 04/05/19 03:39 36.8 C 75 19 121/62 97 PG Care Time/CCT Total # of Minutes Spent Total Time Spent with Patient: Total time spent is greater than 50% in coordination of care (as documented) at patient's floor/unit and/or counseling patient: (1) Closed intertrochanteric fracture of right femur Encounter type: initial encounter Fracture alignment: displaced Qualified Code(s): S72.141A - Displaced intertrochanteric fracture of right femur, initial encounter for closed fracture
--- NOTE | 2019-04-05 14:58 | CT Scan Report ---
CT head/brain wo con CT DOSE: HISTORY: chronic hypokalemia, possibly pituitary adenoma? TECHNIQUE: Multiaxial CT images of the head were performed without the use of intravenous contrast. A dose lowering technique was utilized adhering to the principles of ALARA. Comparison: None. Findings: The paranasal sinuses and mastoid air cells are clear. The calvarium and skull base are int act. The ventricles and sulci are within normal limits. There is no mass, hematoma, midline shift, or acute infarct. Impression: No acute intracranial abnormality. The above report was generated using voice recognition software. It may contain grammatical, syntax or spelling errors. Electronically signed by: Milad Garza M.D. 04/05/2019 2:56 PM
--- NOTE | 2019-04-05 15:01 | CT Scan Report ---
CT chest wo con CLINICAL HISTORY: 53 years-old Male with posible lung malignancy, chronic hypokalemia. Hypokalemia TECHNIQUE: Multiaxial CT images of the chest were performed without contrast. A dose lowering techni que was utilized adhering to the principles of ALARA. COMPARISON: CT abdomen and pelvis of same day, fluoroscopic images of the right hip 04/04/2019. FINDINGS: Unremarkable thyroid. There is no adenopathy by CT size criteria. Minimal coronary arterial calcifica tions are noted. Heart is normal in size without pericardial effusion. Trace fluid noted within the s uperior pericardial recesses. Unopacified thoracic aorta and pulmonary artery appear unremarkable. No pneumothorax or pleural effusion. The lungs are hyperinflated. Mild linear subsegmental bibasilar atelectasis/scarring. Punctate calcified granuloma of the right lower lobe. There are a few periphera l subsegmental tree-in-bud nodules noted about the basal left lower lobe with individual nodules jesse uring up to 3 mm. There are no suspicious pulmonary nodules or masses identified. The central airways appear to be patent. Debris-filled stomach. No acute process of the imaged upper abdomen. Soft tissues are unremarkable. B ones appear intact. There are no suspicious lytic or blastic bony lesions. There is mild convex right curvature of the midthoracic spine. IMPRESSION: 1. Minimal subsegmental tree-in-bud nodules of the left lower lobe suggest infectious or inflammatory bronchiolitis. 2. No focal airspace consolidation typical for pneumonia. 3. No definitively suspicious pulmonary nodules or masses identified. 4. No adenopathy. Electronically signed by: Ra Long M.D. 04/05/2019 3:00 PM
--- NOTE | 2019-04-05 15:02 | CT Scan Report ---
CT abd pelvis wo con CLINICAL HISTORY: 53 years-old Male presenting with possible adrenal malignancy, chronic hypokalemia. TECHNIQUE: Multidetector CT of the abdomen and pelvis was performed without the use of intravenous co ntrast. IV contrast: None. One or more dose lowering techniques were used consistent with the princip les of ALARA (as low as reasonably achievable), including automatic exposure control, mA or kV adjust ment to individual patient size, and/or use of iterative reconstruction. COMPARISON: None. CT DOSE (mGy.cm): The estimated cumulative dose is 1119.06 mGy.cm. FINDINGS: [employer] T[employer] topogram: Unremarkable. Lung bases: Normal heart size. No pericardial or pleural effusion. Minimal dependent changes likely a telectasis. Liver: Normal morphology. Normal density. Biliary: No gross biliary ductal dilatation allowing for noncontrast technique. Normal gallbladder. Pancreas: Normal noncontrast appearance. Spleen: Normal noncontrast appearance. Adrenal glands: Normal noncontrast appearance. Kidneys and ureters: Multiple punctate nonobstructing right renal calculi. Punctate lower pole nonobs tructing left renal calculus. Faint patchy medullary nephrocalcinosis may be present in the right kid makenzie. No hydronephrosis. Ureters nondistended. Bladder: Incompletely evaluated secondary to underdistention. Pelvic organs: Normal noncontrast appearance. Bowel: Mild stool burden throughout normal caliber colon. No bowel obstruction. The appendix is nicki l. Stomach is mildly distended with ingested material. Peritoneal cavity: No free fluid or intraperitoneal gas. Lymph nodes: No gross lymphadenopathy allowing for noncontrast technique. Vasculature: Atherosclerosis of the normal caliber abdominal aorta. Abdominal wall: Normal. Musculoskeletal: Infiltration in the subcutaneous fat and deeper interfascial layers along the latera l proximal right lower extremity with multiple foci of soft tissue emphysema related to internal fixa tion hardware for the comminuted intertrochanteric right femur fracture. Skin laura noted in the la teral proximal lower extremity. Remainder of the osseous structures intact. Mild degenerative changes focally in the lower lumbar spine. IMPRESSION: 1. No evidence of an adrenal mass. Allowing for noncontrast technique, no mass lesion elsewhere in t he abdomen or pelvis or evidence of acute intra-abdominal pathology. 2. Bilateral nonobstructing punctate nephrolithiasis. 3. Post surgical changes of intramedullary nail fixation across the comminuted intertrochanteric rig ht femur fracture. Electronically signed by: Anthony Brunson M.D. 04/05/2019 3:00 PM
--- NOTE | 2019-04-05 17:51 | Orthopedic Progress Note ---
Date of Service April 05, 2019 Assessment & Plan (1) Closed intertrochanteric fracture of right femur: POD #1, ORIF Right hip short troch nail PT/ OT- 50% WB w walker DVT proph- ASA D/C plans - Home As per primary team. Subjective POD #1, patient feeling good, minimal pain. Denies SOB, CP, N/V. Physical Exam Physical Exam: Right hip dressings c/d/i, no drainage. No calf tenderness, neg homans. Toes and ankle mobile. N/V+ A&Ox3. Results & Data Vital Signs (Past 12 Hours) Vital Signs Temp Pulse Resp BP Pulse Ox 04/05/ 15:13 36.3 C L 65 16 128/72 99 04/05/19 06:59 36.7 C 65 19 118/61 95 (1) Closed intertrochanteric fracture of right femur Encounter type: initial encounter Fracture alignment: displaced Qualified Code(s): S72.141A - Displaced intertrochanteric fracture of right femur, initial encounter for closed fracture
[2019-04-05] MEDS: SENNA 8.6 MG TAB PO SCH (21:00)
[2019-04-06 06:59] LABS: Basophils # (auto) 0.01 K/uL (0-0.2); Basophils % (auto) 0.1 %; Eosinophils # (auto) 0.52 K/uL (0-0.5); Eosinophils % (auto) 6.2 %; Hematocrit (blood only) 35.4 % (42-52); Immature Granulocytes # (auto) 0.01 K/uL (0.00-0.02); Immature Granulocytes % (auto) 0.1 %; Lymphocytes # (auto) 2.23 K/uL (1.2-3.4); Lymphocytes % (auto) 26.4 %; Mean Corpuscular Hemoglobin 30.3 pg (25-34); Mean Corpuscular Hgb Conc 33.9 g/dL (32-36); Mean Corpuscular Volume 89.4 fL (80-100); Mean Platelet Volume 11.7 fL (7.4-10.4); Monocytes # (auto) 0.79 K/uL (0.11-0.59); Monocytes % (auto) 9.3 %; Neutrophils # (auto) 4.89 K/uL (1.4-6.5); Neutrophils % (auto) 57.9 %; Platelet Count 208 K/uL (130-400); RDW Coefficient of Variation 12.4 % (11.5-14.5); RDW Standard Deviation 40.4 fL (36.4-46.3); Red Blood Count 3.96 M/uL (4.7-6.1); White Blood Count 8.45 K/uL (4.8-10.8)
[2019-04-06 07:35] LABS: Albumin Level 3.3 gm/dl (3.4-5.0); Calcium 8.6 mg/dl (8.5-10.1); Est GFR (African American) 115.6; Est GFR (Non-African American) 99.8; Potassium 3.9 mmol/L (3.5-5.1)
[2019-04-06 07:38] LABS: Albumin Globulin Ratio 0.9 (0.9-2); Bilirubin,Total 0.7 mg/dl (0.2-1); Globulin 3.7 gm/dl (2.5-4.0)
--- NOTE | 2019-04-06 08:04 | Hospitalist Progress Note ---
Date of Service April 06, 2019 Assessment & Plan (1) Closed intertrochanteric fracture of right femur: Continue admit to [facility] Continue physical and Occupational Therapy. Patient is nonweightbearing on the right lower extremity. Appreciate orthopedic recommendations. Patient tolerated procedure of intratrochanteric nailing right femur for right intratrochanteric femur fracture very well. CT of the head, abdomen pelvis, chest done are negative for any kind of adrenal adenoma that would cause patient to have chronic hypokalemia. Currently potassium is 3.9. Patient got supplement yesterday 40 M EQ's and was able to hold it.Continue monitoring potassium closely. Patient said that he was told in the past that he has adrenal insufficiency. After discharge with refer patient to speech scientist. Leukocytosis resolved. WBC 8.45. DVT prophylaxis teds and SCDs Lovenox 40 mg sc daily for DVT prophylaxis. (2) Leukocytosis: Resolved Subjective Patient seen and examined at the bedside. Seen at the bedside with Dr. Rubio.Patient started to have physical and Occupational Therapy and states that it is not going as he expected to. Patient tolerated surgery well. Patient is nonweightbearing at his right lower extremity were closed intratrochanteric fracture fracture of the right femur occurred and ORIF right hip showed truck nail. Patient is status POD #2. A CT scan of the abdomen and chest and had reviewed with the patient. Occasional chronic hypokalemia now resolved. Patient reports having fat diet. No medical or scientific explanation for hypokalemia at the present time. Patient should follow-up with endocrinology once when he is discharged as an outpatient in the clinic. Patient denies fever, chills, chest pain, shortness of breath, abdominal pain, frequency, urgency patient complains of right hip pain. Review of Systems Review of Systems: All systems reviewed & are unremarkable except as noted in HPI & below Physical Exam Constitutional: WD/WN, vitals as above well developed Eyes: PERRL, conjunctivae normal, anicteric sclerae ENMT: external ear and nose normal, oropharynx normal Neck: trachea midline, no thyromegaly Respiratory: normal respiratory effort, lungs clear to auscultation Cardiovascular: RRR, no murmur, no edema Gastrointestinal (Abdomen): normal bowel sounds, soft, nontender, no hepatosplenomegaly Musculoskeletal: no cyanosis or clubbing, extremities motor strength 5/5 Extremities: + limited ROM of extremities Skin: no rashes, warm and dry Neurologic: patellar DTR's 2+ bilat, sensation intact Psychiatric: A+Ox3, euthymic affect Lymphatic: no cervical or axillary lymphadenopathy Results & Data Vital Signs (Past 12 Hours) Vital Signs Temp Pulse Pulse Resp BP Pulse Ox 04/06/19 07:35 36.8 C 64 18 122/78 95 04/05/19 22:55 36.9 C 74 18 131/66 99 PG Care Time/CCT Total # of Minutes Spent Total Time Spent with Patient: Total time spent is greater than 50% in coordination of care (as documented) at patient's floor/unit and/or counseling patient: (1) Closed intertrochanteric fracture of right femur Encounter type: initial encounter Fracture alignment: displaced Qualified Code(s): S72.141A - Displaced intertrochanteric fracture of right femur, initial encounter for closed fracture
--- NOTE | 2019-04-06 08:42 | Orthopedic Progress Note ---
Date of Service April 06, 2019 Assessment & Plan (1) Closed intertrochanteric fracture of right femur: POD #2, ORIF Right hip short troch nail PT/ OT- 50% WB w walker DVT proph- ASA D/C plans - Home vs rehab As per primary team. Subjective POD #2, Doing well, pain controlled well. Denies SPB, CP, N/V. Did well in PT. Physical Exam Physical Exam: Right hip dressings c/d/i, no drainage. Toes/ ankle mobile. No calf tenderness. A&Ox3. Results & Data Vital Signs (Past 12 Hours) Vital Signs Temp Pulse Pulse Resp BP Pulse Ox 04/06/ 07:35 36.8 C 64 18 122/78 95 04/05/19 22:55 36.9 C 74 18 131/66 99 (1) Closed intertrochanteric fracture of right femur Encounter type: initial encounter Fracture alignment: displaced Qualified Code(s): S72.141A - Displaced intertrochanteric fracture of right femur, initial encounter for closed fracture
[2019-04-06] MEDS: OXYCODONE/ACETAMINOPHEN 5mg/325mg TAB PO PRN ×3 (08:52→18:58)
[2019-04-06] MEDS: ASPIRIN 81 MG ECTAB PO SCH ×2 (08:52→20:49)
[2019-04-06] MEDS: MULTIVITAMIN TAB PO SCH (08:52)
[2019-04-06] MEDS: DOCUSATE SODIUM 100 MG CAP PO SCH ×2 (10:30→20:49)
[2019-04-06] MEDS ORDERED: ENOXAPARIN INJ 40 MG/0.4 ML SYR SQ SCH (18:00)
[2019-04-06] MEDS: SENNA 8.6 MG TAB PO SCH (20:49)
[2019-04-07 06:32] LABS: Basophils # (auto) 0.01 K/uL (0-0.2); Basophils % (auto) 0.1 %; Eosinophils # (auto) 0.43 K/uL (0-0.5); Eosinophils % (auto) 5.6 %; Hematocrit (blood only) 34.7 % (42-52); Hemoglobin 11.8 g/dL (14.0-18.0); Immature Granulocytes # (auto) 0.02 K/uL (0.00-0.02); Immature Granulocytes % (auto) 0.3 %; Lymphocytes % (auto) 22.1 %; Mean Corpuscular Hemoglobin 30.5 pg (25-34); Mean Corpuscular Volume 89.7 fL (80-100); Mean Platelet Volume 11.1 fL (7.4-10.4); Monocytes # (auto) 0.81 K/uL (0.11-0.59); Monocytes % (auto) 10.5 %; Neutrophils # (auto) 4.72 K/uL (1.4-6.5); Neutrophils % (auto) 61.4 %; Platelet Count 218 K/uL (130-400); RDW Coefficient of Variation 12.5 % (11.5-14.5); RDW Standard Deviation 40.5 fL (36.4-46.3); Red Blood Count 3.87 M/uL (4.7-6.1); White Blood Count 7.69 K/uL (4.8-10.8)
[2019-04-07 06:55] LABS: Albumin Level 3.2 gm/dl (3.4-5.0); Calcium 8.7 mg/dl (8.5-10.1); Creatinine Clr Calc Pharmacy 84.7 ml/min; Est GFR (African American) 102.2; Est GFR (Non-African American) 88.1; Potassium 3.5 mmol/L (3.5-5.1)
[2019-04-07 06:58] LABS: Albumin Globulin Ratio 0.9 (0.9-2); Bilirubin,Total 0.7 mg/dl (0.2-1); Globulin 3.7 gm/dl (2.5-4.0); Total Protein 6.9 gm/dl (6.4-8.2)
--- NOTE | 2019-04-07 07:39 | Orthopedic Progress Note ---
Date of Service April 07, 2019 Assessment & Plan (1) Closed intertrochanteric fracture of right femur: POD #3, ORIF Right hip short troch nail PT/ OT- 50% WB w walker DVT proph- ASA D/C plans - Home vs rehab As per primary team. Ortho will sign off at this time. Patient will follow up with Dr. Rubio or his PA 12-14 days post operatively. Please call with any questions or concerns. Subjective Patient is POD#3 left hip fracture ORIF. Doing well, mild increase in pain today. Has complaint of increased stiffness. Reassured patient. No other complaints. Denies chest pain, sob, dizziness, light headedness, n/v/d. Review of Systems Review of Systems: All systems reviewed & are unremarkable except as noted in HPI & below Physical Exam Physical Exam: Dressing is c/d/i. No calf tenderness. Toes mobile. Distally n/v status and sensation intact. Constitutional: well developed and well nourished; no acute distress Results & Data Vital Signs (Past 12 Hours) Vital Signs Temp Pulse Resp BP Pulse Ox 04/06/19 22:44 36.5 C 77 16 121/75 98 (1) Closed intertrochanteric fracture of right femur Encounter type: initial encounter Fracture alignment: displaced Qualified Code(s): S72.141A - Displaced intertrochanteric fracture of right femur, initial encounter for closed fracture
[2019-04-07] MEDS: OXYCODONE/ACETAMINOPHEN 5mg/325mg TAB PO PRN (08:00)
[2019-04-07] MEDS: MULTIVITAMIN TAB PO SCH (08:02)
[2019-04-07] MEDS: ASPIRIN 81 MG ECTAB PO SCH ×2 (08:02→20:53)
[2019-04-07] MEDS: DOCUSATE SODIUM 100 MG CAP PO SCH ×2 (08:02→20:53)
--- NOTE | 2019-04-07 11:00 | Ultrasound Report ---
US venous doppler LE RT CLINICAL HISTORY: Right leg swelling. Recent femoral surgery. COMPARISON STUDY: No previous studies for comparison. FINDINGS: Real-time and color flow Doppler imaging were performed. Flow was seen within the femoral, popliteal and calf veins with no intraluminal thrombus demonstrated. The saphenous vein is patent. IMPRESSION: No evidence of right lower extremity DVT. Electronically signed by: Kyree Stevens M.D. 04/07/2019 10:59 AM
--- NOTE | 2019-04-07 16:33 | Hospitalist Progress Note ---
Date of Service April 07, 2019 Assessment & Plan (1) Closed intertrochanteric fracture of right femur: Continue admit to [facility] Continue physical and Occupational Therapy. Patient is nonweightbearing on the right lower extremity. Appreciate orthopedic recommendations. Patient tolerated procedure of intratrochanteric nailing right femur for right intratrochanteric femur fracture very well. Mild swelling of the right lower extremity above the knee, checked for US venous thrombosis. No DVT was found. CT of the head, abdomen pelvis, chest done are negative for any kind of adrenal adenoma that would cause patient to have chronic hypokalemia. Patient potassium is 3.5 again today. Unknown reason for chronic hypokalemia. Patient said that he was told in the past that he has adrenal insufficiency. 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 Leukocytosis resolved. DVT prophylaxis teds and SCDs Continue aspirin 81 twice daily for DVT prophylaxis per Ortho. (2) Leukocytosis: Resolved Subjective Patient is POD#4 left hip fracture ORIF. Doing well, pain tolerated better. Physical therapy progressing. Patient complaining of swelling of his right lower extremities. There is a mild redness and erythema above his right knee. No significant inflammation or swelling. Ultrasound with venous Doppler was done and did not show any DVT in the right lower extremity. Denies chest pain, sob, dizziness, light headedness, n/v/d. Review of Systems Review of Systems: All systems reviewed & are unremarkable except as noted in HPI & below Physical Exam Constitutional: WD/WN, vitals as above well developed Eyes: PERRL, conjunctivae normal, anicteric sclerae ENMT: external ear and nose normal, oropharynx normal Neck: trachea midline, no thyromegaly Respiratory: normal respiratory effort, lungs clear to auscultation Cardiovascular: RRR, no murmur, no edema Gastrointestinal (Abdomen): normal bowel sounds, soft, nontender, no hepatosplenomegaly Musculoskeletal: no cyanosis or clubbing, extremities motor strength 5/5 Extremities: + limited ROM of extremities Skin: no rashes, warm and dry Neurologic: patellar DTR's 2+ bilat, sensation intact Psychiatric: A+Ox3, euthymic affect Lymphatic: no cervical or axillary lymphadenopathy Results & Data Vital Signs (Past 12 Hours) Vital Signs Temp Pulse Resp BP Pulse Ox 04/07/19 15:44 36.7 C 72 16 131/61 96 04/07/19 07:59 36.9 C 81 16 126/60 96 PG Care Time/CCT Total # of Minutes Spent Total Time Spent with Patient: Total time spent is greater than 50% in coordination of care (as documented) at patient's floor/unit and/or counseling patient: (1) Closed intertrochanteric fracture of right femur Encounter type: initial encounter Fracture alignment: displaced Qualified Code(s): S72.141A - Displaced intertrochanteric fracture of right femur, initial encounter for closed fracture
[2019-04-07] MEDS ORDERED: POTASSIUM CHLORIDE 20 MEQ TABCR PO STA (17:49)
[2019-04-07] MEDS: SENNA 8.6 MG TAB PO SCH (20:53)
[2019-04-08 05:48] LABS: Basophils # (auto) 0.02 K/uL (0-0.2); Basophils % (auto) 0.3 %; Eosinophils # (auto) 0.49 K/uL (0-0.5); Eosinophils % (auto) 6.6 %; Hematocrit (blood only) 32.2 % (42-52); Hemoglobin 11.1 g/dL (14.0-18.0); Immature Granulocytes # (auto) 0.01 K/uL (0.00-0.02); Immature Granulocytes % (auto) 0.1 %; Lymphocytes # (auto) 1.95 K/uL (1.2-3.4); Lymphocytes % (auto) 26.4 %; Mean Corpuscular Hemoglobin 30.6 pg (25-34); Mean Corpuscular Hgb Conc 34.5 g/dL (32-36); Mean Corpuscular Volume 88.7 fL (80-100); Mean Platelet Volume 10.7 fL (7.4-10.4); Monocytes # (auto) 0.72 K/uL (0.11-0.59); Monocytes % (auto) 9.7 %; Neutrophils % (auto) 56.9 %; Platelet Count 220 K/uL (130-400); RDW Coefficient of Variation 12.5 % (11.5-14.5); RDW Standard Deviation 39.8 fL (36.4-46.3); Red Blood Count 3.63 M/uL (4.7-6.1); Reticulocyte % 1.8 % (0.5-2.0); Reticulocytes # 0.07 10^6/uL (0.02-0.10); White Blood Count 7.39 K/uL (4.8-10.8)
[2019-04-08 06:28] LABS: Albumin Globulin Ratio 0.8 (0.9-2); Albumin Level 3.1 gm/dl (3.4-5.0); BUN Creatinine Ratio 18.2 (10-20); Bilirubin,Total 0.9 mg/dl (0.2-1); Calcium 8.4 mg/dl (8.5-10.1); Creatinine Clr Calc Pharmacy 126.4 ml/min; Est GFR (African American) 127.8; Est GFR (Non-African American) 110.3; Globulin 3.8 gm/dl (2.5-4.0); Potassium 3.8 mmol/L (3.5-5.1); Total Protein 6.9 gm/dl (6.4-8.2)
[2019-04-08] MEDS: DOCUSATE SODIUM 100 MG CAP PO SCH ×2 (08:57→21:21)
[2019-04-08] MEDS: MULTIVITAMIN TAB PO SCH (08:57)
[2019-04-08] MEDS: ASPIRIN 81 MG ECTAB PO SCH ×2 (08:58→21:20)
[2019-04-08 09:12] LABS: Folate (Folic Acid) 16.81 ng/ml (>5.38)
--- NOTE | 2019-04-08 19:25 | Hospitalist Progress Note ---
Date of Service April 08, 2019 Assessment & Plan (1) Closed intertrochanteric fracture of right femur: Continue admit to [facility] Continue physical and Occupational Therapy. Patient is nonweightbearing on the right lower extremity. Appreciate orthopedic recommendations.POD#5 - intratrochanteric nailing right femur for right intratrochanteric femur fracture. Mild swelling of the right lower extremity above the knee, checked for US venous thrombosis. No DVT was found. CT of the head, abdomen pelvis, chest done are negative for any kind of adrenal adenoma that would cause patient to have chronic hypokalemia. Patient potassium stable today. Unknown reason for chronic hypokalemia. P rene said that he was told in the past that he has adrenal insufficiency. After discharge with refer patient to medical office supervisor. Leukocytosis resolved. DVT prophylaxis teds and SCDs Continue aspirin 81 twice daily for DVT prophylaxis per Ortho. Disposition: Pt prefers to go home rather then SNF. (2) Leukocytosis: Resolved Subjective Patient is POD#5 left hip fracture ORIF. Doing well, pain tolerated better. Physical therapy progressing. No DVT found in the right lower extremity. Redness and erythema of the right lower extremity improved. No significant inflammation or swelling.Denies chest pain, sob, dizziness, light headedness, n/v/d. Review of Systems Review of Systems: All systems reviewed & are unremarkable except as noted in HPI & below Physical Exam Constitutional: WD/WN, vitals as above well developed Eyes: PERRL, conjunctivae normal, anicteric sclerae ENMT: external ear and nose normal, oropharynx normal Neck: trachea midline, no thyromegaly Respiratory: normal respiratory effort, lungs clear to auscultation Cardiovascular: RRR, no murmur, no edema Gastrointestinal (Abdomen): normal bowel sounds, soft, nontender, no hepatosplenomegaly Musculoskeletal: no cyanosis or clubbing, extremities motor strength 5/5 Extremities: + limited ROM of extremities Skin: no rashes, warm and dry Neurologic: patellar DTR's 2+ bilat, sensation intact Psychiatric: A+Ox3, euthymic affect Lymphatic: no cervical or axillary lymphadenopathy Results & Data Vital Signs (Past 12 Hours) Vital Signs Temp Pulse Resp BP Pulse Ox 04/08/19 15:20 36.8 C 78 17 126/77 97 PG Care Time/CCT Total # of Minutes Spent Total Time Spent with Patient: Total time spent is greater than 50% in coordination of care (as documented) at patient's floor/unit and/or counseling patient: (1) Closed intertrochanteric fracture of right femur Encounter type: initial encounter Fracture alignment: displaced Qualified Code(s): S72.141A - Displaced intertrochanteric fracture of right femur, initial encounter for closed fracture
[2019-04-08] MEDS: SENNA 8.6 MG TAB PO SCH (21:20)
[2019-04-08 23:39] VITALS: TEMP 98.4
[2019-04-09 06:26] LABS: Basophils # (auto) 0.01 K/uL (0-0.2); Basophils % (auto) 0.1 %; Eosinophils # (auto) 0.51 K/uL (0-0.5); Eosinophils % (auto) 6.5 %; Hematocrit (blood only) 34.7 % (42-52); Hemoglobin 11.7 g/dL (14.0-18.0); Immature Granulocytes # (auto) 0.02 K/uL (0.00-0.02); Immature Granulocytes % (auto) 0.3 %; Lymphocytes # (auto) 2.05 K/uL (1.2-3.4); Lymphocytes % (auto) 25.9 %; Mean Corpuscular Hgb Conc 33.7 g/dL (32-36); Mean Platelet Volume 11.3 fL (7.4-10.4); Monocytes # (auto) 0.76 K/uL (0.11-0.59); Monocytes % (auto) 9.6 %; Neutrophils # (auto) 4.55 K/uL (1.4-6.5); Neutrophils % (auto) 57.6 %; Platelet Count 243 K/uL (130-400); RDW Coefficient of Variation 12.6 % (11.5-14.5); RDW Standard Deviation 40.3 fL (36.4-46.3)
[2019-04-09 07:00] LABS: Albumin Level 3.3 gm/dl (3.4-5.0); BUN Creatinine Ratio 20.4 (10-20); Creatinine Clr Calc Pharmacy 111.1 ml/min; Est GFR (African American) 121.2; Est GFR (Non-African American) 104.6; Potassium 3.7 mmol/L (3.5-5.1)
[2019-04-09 07:03] LABS: Albumin Globulin Ratio 0.8 (0.9-2); Globulin 3.9 gm/dl (2.5-4.0); Total Protein 7.2 gm/dl (6.4-8.2)
[2019-04-09 07:53] VITALS: BP 118/82; O2SAT 97
[2019-04-09] MEDS: MULTIVITAMIN TAB PO SCH (08:41)
[2019-04-09] MEDS: DOCUSATE SODIUM 100 MG CAP PO SCH ×2 (08:41→19:10)
[2019-04-09] MEDS: ASPIRIN 81 MG ECTAB PO SCH ×2 (08:41→19:10)
[2019-04-09] MEDS: ACETAMINOPHEN 325 MG TAB PO PRN ×2 (13:17→19:10)
[2019-04-09 14:22] VITALS: PULSE 63
--- NOTE | 2019-04-09 15:05 | Discharge Summary ---
Date of Service April 09, 2019 Admission HPI Per Admitting Provider Patient is a 53 years old male with out significant past medical history who presents this morning to the emergency room with a complaint that he fell from his skateboard and injured his right hip and now complains of severe pain and cannot move his right hip anymore. 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 Patient denies any alcohol consumption smoking or drug abuse. Patient reports having a cold in the past week associated with cough. He reports no sick contact. Patient denies fever, chills, chest pain, shortness of breath, abdominal pain, frequency, urgency. Labs are reviewed which shows WBC of 20.73, hemoglobin 13.4, hematocrit 38.1, neutrophils of 17.31, and elevated monocytes of 1.92. Platelets are 229. PT 12.1, INR 1.2, APTT 22.7. Sodium 137, potassium 3, chloride 101, BUN 16, creatinine 1.05, GFR 80.1, lactate pending, calcium 9, AST 11, ALT 19, BNP 41, albumin 3.9 normal TSH pending. Urine negative blood, negative nitrates, negative bacteria, negative leukocyte esterase. Chest x-rays no active disease. X-rays of the right femur: Acute intratrochanteric right hip fracture, closed without dislocation. Decision was made to admit patient for right intratrochanteric fracture and leukocytosis and hypokalemia to [facility]. Principal Diagnosis Right intertrochanteric femur fracture, closed Discharge Exam Constitutional WD/WN, vitals as above Eyes PERRL, conjunctivae normal, anicteric sclerae ENMT external ear and nose normal, oropharynx normal Neck trachea midline, no thyromegaly Respiratory normal respiratory effort, lungs clear to auscultation Cardiovascular RRR, no murmur, no edema Gastrointestinal (Abdomen) normal bowel sounds, soft, nontender, no hepatosplenomegaly Musculoskeletal Head/Neck/Chest: normocephalic and head atraumatic Spine: normal cervical lordosis, thoracic spine normal to inspection and lumbar spine normal to inspection Gait: + antalgic gait Hip: + hip abnormal to inpsection (bruising right hip), + surgical incision and + limited ROM of hip (due to pain) Skin no rashes, warm and dry Neurologic patellar DTR's 2+ bilat, sensation intact and PERRL, EOMI, accommodation nl, no face palsy, no dysarthria Psychiatric A+Ox3, euthymic affect Lymphatic no cervical or axillary lymphadenopathy Discharge Data Allergies Allergy/AdvReac Type Severity Reaction Status Date / Time No Known Allergies Allergy Mild Unverified 04/03/19 05:49 Consultations 04/03/19 06:41 ED Decision to Admit Stat 04/03/19 10:52 Consult Orthopedic Surgery Routine 04/04/19 18:18 Consult Case Management - Discharge Planning Routine Procedures Performed Operation Date: 04/04/19 08:20 Actual Procedures p Intertrochanteric Nailing Right Femur Fracture(Right) - Qasim Rubio MD Ordered Studies 04/04/19 13:00 FL fluoroscopy <1hr Routine FL hip RT 2-3V Routine 04/05/19 13:51 CT head/brain wo con Stat 04/05/19 13:52 CT chest wo con Stat 04/05/19 13:53 CT abd pelvis wo con Stat 04/07/19 09:12 US venous doppler LE RT Stat Hospital Course (1) Closed intertrochanteric fracture of right femur: POD#6 - intratrochanteric nailing right femur for right intratrochanteric femur fracture. pain control with Tylenol 650mg q4 and can use Percocet PRN, 10 tablets given plan for home therapy, patient has exercises to do, specific instructions provided by ortho he will use crutches, 50% weight bearing to right leg, he is aware of this plans to follow up with [facility] in a week Aspirin 81mg BID x 4 weeks for DVT prophylaxis (2) Leukocytosis: Resolved, due to fracture (3) Hypokalemia: mild, resolved with PO replacement he had some concerns about low potassium in the past, asked about adrenal insufficiency discussed with him that typically those patients have low potassium despite aggressive PO replacement he has no signs of this would recommend that he get a PCP Total Time Total Time Spent Total Time Spent (In Minutes): 40 minutes Total Time Includes: Examination of the Patient, Discharge Planning, Medication Reconciliation and Other (prolonged discussion with patient about plans for discharge, numerous questions) Discharge Plan Discharge Items Patient Disposition: Home - Self-Care Reason For Visit: R INTRATROCHANTERIC CLOSED FX,LEUKOCYTOSIS Discharge Diagnosis: Right intertrochanteric femur neck fracture, closed s/p IM nailing for stabilization Hypokalemia Condition on Discharge: Good Goals: improve strength and mobility Activity: Per Instructions section Lifting: Gradually increase as tolerated Bathing: Keep incision dry Exercise/Sports: Gradually increase as tolerated Driving/Machine Use: no driving while taking narcotics Weightbearing: Right weightbearing Weightbearing Comment: 50%, use crutches Non-emergency contact: Surgeon Call non-emergency contact if: you have any medication questions, your symptoms worsen, your pain is not controlled, your pain is worsening and you have a fever Follow-up/Referrals: Qasim Rubio MD [Surgeon] - 04/17/19 1:40 pm (Please, follow up at [facility] with Dr. Rubio on TuesdayApril 17 at 1:40 pm. *The office is located at [address] [place] [address]. If you need to change this appointment, call the office at [phone]. PLEASE, BRING CURRENT MEDICATION LIST AND A PHOTO ID.) Diet: Regular Addtl Attending Provider Instructions: Medications: - ASPIRIN: 81mg tablets, take one tablet twice a day for 4 weeks, this is to prevent blood clots after surgery - TYLENOL: use first line for pain/fever, can take 650mg every 4 hours - PERCOCET: use as needed for pain breakthrough, if you need to take a Percocet then do not take Tylenol for 6 hours specific discharge instructions prepared by [facility] below as we discussed, listen to your body, important to stay active but not overdo it could to therapy 20 minutes at a time for three times a day, increase gradually to improve strength okay to use ice for 15-20 minutes after therapy to reduce pain/swelling Low potassium: as we discussed, most likely this is not a serious issue you can continue to take an over the counter potassium supplement every other day continue to eat foods high in potassium [facility] DISCHARGE INSTRUCTIONS: HIP FRACTURE SELF CARE INSTRUCTIONS: A. You are to ambulate with a walker or crutches for approximately 6 weeks. B. You are PARTIAL WEIGHT BEARING on your operative lower extremity for at least 6 weeks. C. Wear low heeled shoes with non-slip soles D. Be sure that your floors are free of things that could trip you throw rugs, electrical cords, and small objects. Avoid wet and waxed floors, especially with crutches/walker/cane. E. Try to walk several times a day with rest periods between. F. You may shower 48 hours after surgery and get the incision area wet, but DO NOT soak or submerge incision area in water. (No baths, swimming pools, hot tubs) G. You may have a large, band-aid like dressing over your incision (Aquacel). This will remain on your incision for 7 days, and then can be removed. You CAN shower with this on. If incision is leaking through the dressing, please call the office . H. Do NOT apply soap or any ointment/lotions directly over incision. I. You may use ice as needed to operative site. SPECIAL CARE INSTRUCTIONS: VERY IMPORTANT TO READ AND REVIEW A. You may be at risk for phlebitis or blood clots. a. Wear surgical stockings (ZACKERY hose) for 2 weeks after surgery to improve circulation and reduce swelling. b. Take ASPIRIN 81mg twice daily as directed. This is your blood thinner. B. There are a few signs you need to watch for after you are home. Call [facility] at [phone] if you experience any of the following: a. If you have a temperature of 101 degrees or higher. b. Sudden increase in pain in your hip not relieved by rest or pain medication. c. Any fluid or drainage from the incision; redness of the incision. d. Shortness of breath or chest pain. B. Please call [facility] at [phone] if you have any questions or concerns about your operation or recovery. C. Call your physician if: a. Temperature is greater than 101 degrees (F). b. Pain is not relieved by prescribed pain medications. c. Increase drainage or redness from incision. d. Unanswered questions or concerns. D. Pain Medication: a. You will be prescribed pain medication upon discharge that should last till your first post-operative appointment. b. If you experience nausea and/or skin rash, discontinue this medication and contact our office for an alternative medication. c. Caution- narcotic pain medication can cause constipation. FOLLOW UP VISIT: Please call [facility] at [phone] to schedule a follow up appointment 10-14 days from the date of your surgery date. Pending Studies at Discharge: No Stand-Alone Forms: [facility], Opioid Pain Management, Smoking Cessation Medications and DC Order Prescriptions: New acetaminophen [Mapap (acetaminophen)] 325 mg Tablet 650 mg PO Q4H PRN (Reason: fever or pain) 14 Days Qty: 60 RF: 0 aspirin [Ecotrin Low Strength] 81 mg Tablet,Delayed Release (Dr/Ec) 81 mg PO BID 28 Days Qty: 56 RF: 0 oxycodone-acetaminophen [Percocet] 5-325 mg Tablet 1 tab PO Q4H PRN (Reason: pain) 7 Days Qty: 10 RF: 0 No Action No Known Home Medications RF: 0 Discharge Orders: Discharge Order (Routine); Ordered 04/09/19 Ordered By: Sam Coy/Other Patient Handouts: Fx Femur ORIF Admission Data Admit Date/Time: 04/03/19 07:23 Attending Provider: Sam Mann Admit Provider: Daniel Arroyo Primary Care Provider: PCP,NO Other Providers: Dalton Kumar Keith D. Other Interventions: Discharge Summary Assessment (RN) Last Done: 04/09/19 14:18
[2019-04-09] MEDS: SENNA 8.6 MG TAB PO SCH (19:10)
== END 2019-04-09 21:37 | disposition home or self-care (01) | DRG 482 ==
LOC: ED 05:31 → 3N 07:23 → SUATTDRO 07:23 → 3N 08:52